=== PATIENT | female | born 1995 | race Hispanic/Latino ===

== ENCOUNTER 2019-05-21 15:49 | Emergency (ER) | payer SELFPAY ==
[~2019-05-21] VITALS: Ht 149.9 cm; Wt 56.7 kg
--- OUTSIDE RECORDS SUMMARY | 2019-05-21 15:51 | XMS REPORT ---
[facility] Address Unknown Phone Unavailable Care Team Providers Care Director Public Service Name Role Phone Unavailable Unavailable Payers Payer Name Policy Type Policy Number Effective Date Expiration Date Problems This patient has no known problems. Allergies, Adverse Reactions, Alerts Allergy Name Allergy Type Status Severity Reaction(s) Onset Date Inactive Date Treating Clinician Comments No Known Allergies DA Active U 2019-03-18 00:00:00 No Known Allergies DA Active U 2019-02-27 00:00:00 No Known Allergies DA Active U 2018-10-30 00:00:00 No Known Allergies DA Active U 2018-10-24 00:00:00 No Known Allergies DA Active U 2018-09-05 00:00:00 No Known Allergies DA Active U 2018-05-08 00:00:00 No Known Contrast Allergies DA Active U 2008-11-06 00:00:00 No Known Drug Allergies DA Active U 2008-11-06 00:00:00 No Known Food Allergies DA Active U 2008-11-06 00:00:00 No Known Other Allergies DA Active U 2008-11-06 00:00:00 Medications This patient has no known medications. Encounters Start Date/Time End Date/Time Encounter Type Admission Type Attending Clinicians Care Facility Care Department Encounter ID 2019-03-19 13:35:00 2019-03-19 13:35:00 Emergency E [id number] Results Test Description Test Time Test Comments Text Results Atomic Results Result Comments BASIC METABOLIC PANEL 2019-03-18 13:37:00 SODIUM (test code=NA) 137 mmol/L 136-145 POTASSIUM (test code=K) 3.8 mmol/L 3.5-5.1 CHLORIDE (test code=CL) 105.0 mmol/L 98-107 CARBON DIOXIDE (test code=CO2) 23.0 mmol/L 21-32 ANION GAP (test code=GAP) 12.8 10-20 GLUCOSE (test code=GLU) 109 mg/dL 74-106 BLOOD UREA NITROGEN (test code=BUN) 8 mg/dL 7-18 GLOMERULAR FILTRATION RATE (test code=GFR) > 60 mL/min >=60 Estimated GFR by using Modified MDRD formula.Chronic kidney disease is defined as either kidney damageor GFR <60 mL/min/1.73 m2 for >3 months. CREATININE (test code=CREAT) 0.60 mg/dL 0.55-1.02 Note change in reference range due to change in reagent. BUN/CREATININE RATIO (test code=BUN/CREA) 13.5 10-20 CALCIUM (test code=CA) 9.5 mg/dL 8.5-10.1 HEPATIC FUNCTION [id number] 13:37:00* Test Item Value Reference Range Comments TOTAL PROTEIN (test code=PROT) 8.2 gram/dL 6.4-8.2 ALBUMIN (test code=ALB) 3.7 g/dL 3.4-5.0 GLOBULIN (test code=GLOB) 4.5 gram/dL 2.7-4.2 ALBUMIN/GLOBULIN RATIO (test code=A/G) 0.8 0.75-1.50 BILIRUBIN TOTAL (test code=BILT) 0.30 mg/dL 0.0-1.0 BILIRUBIN DIRECT (test code=BILD) 0.08 mg/dL 0.0-0.20 SGOT/AST (test code=AST) 16 IUnit/L 15-37 SGPT/ALT (test code=ALT) 24 IUnit/L 12-78 ALKALINE PHOSPHATASE TOTAL (test code=ALKP) 115 IUnit/L 45-117 Note change in reference range due to change in reagent. HCG SERUM [id number] 13:37:00* Test Item Value Reference Range Comments HCG SERUM QUAL (test code=HCGQL) NEGATIVE NEGATIVE This HCGQL test is NOT applicable for MALE patients.Check with nurse about probable order error.If Tumor Marker Test needed, nurse should order test "HCGTU"(Test #550.16511) [id number] 13:37:00* Test Item Value Reference Range Comments TROPONIN-I (test code=TROPI) <0.015 ng/mL 0-0.045 BASIC METABOLIC [id number] 13:23:00* Test Item Value Reference Range Comments SODIUM (test code=NA) 137 mmol/L 136-145 POTASSIUM (test code=K) 3.8 mmol/L 3.5-5.1 CHLORIDE (test code=CL) 105.0 mmol/L 98-107 CARBON DIOXIDE (test code=CO2) mmol/L 21-32 ANION GAP (test code=GAP) 10-20 GLUCOSE (test code=GLU) mg/dL 74-106 BLOOD UREA NITROGEN (test code=BUN) mg/dL 7-18 GLOMERULAR FILTRATION RATE (test code=GFR) mL/min >=60 CREATININE (test code=CREAT) mg/dL 0.55-1.02 BUN/CREATININE RATIO (test code=BUN/CREA) 10-20 CALCIUM (test code=CA) mg/dL 8.5-10.1 HEPATIC FUNCTION [id number] 13:23:00* Test Item Value Reference Range Comments TOTAL PROTEIN (test code=PROT) gram/dL 6.4-8.2 ALBUMIN (test code=ALB) g/dL 3.4-5.0 GLOBULIN (test code=GLOB) gram/dL 2.7-4.2 ALBUMIN/GLOBULIN RATIO (test code=A/G) 0.75-1.50 BILIRUBIN TOTAL (test code=BILT) mg/dL 0.0-1.0 BILIRUBIN DIRECT (test code=BILD) mg/dL 0.0-0.20 SGOT/AST (test code=AST) IUnit/L 15-37 SGPT/ALT (test code=ALT) IUnit/L 12-78 ALKALINE PHOSPHATASE TOTAL (test code=ALKP) IUnit/L 45-117 HCG SERUM [id number] 13:23:00* Test Item Value Reference Range Comments HCG SERUM QUAL (test code=HCGQL) NEGATIVE NEGATIVE This HCGQL test is NOT applicable for MALE patients.Check with nurse about probable order error.If Tumor Marker Test needed, nurse should order test "HCGTU"(Test #550.24287) [id number] 13:23:00* Test Item Value Reference Range Comments TROPONIN-I (test code=TROPI) ng/mL 0-0.045 BASIC METABOLIC [id number] 13:14:00* Test Item Value Reference Range Comments SODIUM (test code=NA) 137 mmol/L 136-145 POTASSIUM (test code=K) 3.8 mmol/L 3.5-5.1 CHLORIDE (test code=CL) 105.0 mmol/L 98-107 CARBON DIOXIDE (test code=CO2) mmol/L 21-32 ANION GAP (test code=GAP) 10-20 GLUCOSE (test code=GLU) mg/dL 74-106 BLOOD UREA NITROGEN (test code=BUN) mg/dL 7-18 GLOMERULAR FILTRATION RATE (test code=GFR) mL/min >=60 CREATININE (test code=CREAT) mg/dL 0.55-1.02 BUN/CREATININE RATIO (test code=BUN/CREA) 10-20 CALCIUM (test code=CA) mg/dL 8.5-10.1 HEPATIC FUNCTION [id number] 13:14:00* Test Item Value Reference Range Comments TOTAL PROTEIN (test code=PROT) gram/dL 6.4-8.2 ALBUMIN (test code=ALB) g/dL 3.4-5.0 GLOBULIN (test code=GLOB) gram/dL 2.7-4.2 ALBUMIN/GLOBULIN RATIO (test code=A/G) 0.75-1.50 BILIRUBIN TOTAL (test code=BILT) mg/dL 0.0-1.0 BILIRUBIN DIRECT (test code=BILD) mg/dL 0.0-0.20 SGOT/AST (test code=AST) IUnit/L 15-37 SGPT/ALT (test code=ALT) IUnit/L 12-78 ALKALINE PHOSPHATASE TOTAL (test code=ALKP) IUnit/L 45-117 HCG SERUM [id number] 13:14:00* Test Item Value Reference Range Comments HCG SERUM QUAL (test code=HCGQL) NEGATIVE [id number] 13:14:00* Test Item Value Reference Range Comments TROPONIN-I (test code=TROPI) ng/mL 0-0.045 CBC W/O [id number] 13:11:00* Test Item Value Reference Range Comments WHITE BLOOD CELL (test code=WBC) 6.0 K/mm3 4.5-12.5 RED BLOOD CELL (test code=RBC) 4.43 mill/mm3 3.7-5.2 HEMOGLOBIN (test code=HGB) 12.5 gram/dL 11.5-15.5 HEMATOCRIT (test code=HCT) 38.0 % 36.0-46.0 MEAN CELL VOLUME (test code=MCV) 85.8 fL 80-98 MEAN CELL HGB (test code=MCH) 28.2 picogram 27.0-33.0 MEAN CELL HGB CONCETRATION (test code=MCHC) 32.9 gram/dL 33.0-36.0 RED CELL DISTRIBUTION WIDTH (test code=RDW) 13.2 % 11.6-16.2 PLATELET COUNT (test code=PLT) 195 K/mm3 150-450 MEAN PLATELET VOLUME (test code=MPV) 11.3 fL 6.7-11.0 BASIC METABOLIC [id number] 22:22:00* Test Item Value Reference Range Comments SODIUM (test code=NA) 137 mmol/L 136-145 POTASSIUM (test code=K) 3.8 mmol/L 3.5-5.1 CHLORIDE (test code=CL) 103.0 mmol/L 98-107 CARBON DIOXIDE (test code=CO2) 27.0 mmol/L 21-32 ANION GAP (test code=GAP) 10.8 10-20 GLUCOSE (test code=GLU) 100 mg/dL 74-106 BLOOD UREA NITROGEN (test code=BUN) 8 mg/dL 7-18 GLOMERULAR FILTRATION RATE (test code=GFR) > 60 mL/min >=60 Estimated GFR by using Modified MDRD formula.Chronic kidney disease is defined as either kidney damageor GFR <60 mL/min/1.73 m2 for >3 months. CREATININE (test code=CREAT) 0.60 mg/dL 0.55-1.02 Note change in reference range due to change in reagent. BUN/CREATININE RATIO (test code=BUN/CREA) 14.0 10-20 CALCIUM (test code=CA) 9.4 mg/dL 8.5-10.1 HCG SERUM [id number] 22:22:00* Test Item Value Reference Range Comments HCG SERUM QUAL (test code=HCGQL) NEGATIVE NEGATIVE This HCGQL test is NOT applicable for MALE patients.Check with nurse about probable order error.If Tumor Marker Test needed, nurse should order test "HCGTU"(Test #550.46526) BASIC METABOLIC [id number] 22:21:00* Test Item Value Reference Range Comments SODIUM (test code=NA) 137 mmol/L 136-145 POTASSIUM (test code=K) 3.8 mmol/L 3.5-5.1 CHLORIDE (test code=CL) 103.0 mmol/L 98-107 CARBON DIOXIDE (test code=CO2) 27.0 mmol/L 21-32 ANION GAP (test code=GAP) 10.8 10-20 GLUCOSE (test code=GLU) 100 mg/dL 74-106 BLOOD UREA NITROGEN (test code=BUN) 8 mg/dL 7-18 GLOMERULAR FILTRATION RATE (test code=GFR) > 60 mL/min >=60 Estimated GFR by using Modified MDRD formula.Chronic kidney disease is defined as either kidney damageor GFR <60 mL/min/1.73 m2 for >3 months. CREATININE (test code=CREAT) 0.60 mg/dL 0.55-1.02 Note change in reference range due to change in reagent. BUN/CREATININE RATIO (test code=BUN/CREA) 14.0 10-20 CALCIUM (test code=CA) 9.4 mg/dL 8.5-10.1 HCG SERUM [id number] 22:21:00* Test Item Value Reference Range Comments HCG SERUM QUAL (test code=HCGQL) NEGATIVE CBC W/AUTO [id number] 22:05:00* Test Item Value Reference Range Comments WHITE BLOOD CELL (test code=WBC) 8.6 K/mm3 4.5-12.5 RED BLOOD CELL (test code=RBC) 4.41 mill/mm3 3.7-5.2 HEMOGLOBIN (test code=HGB) 12.3 gram/dL 11.5-15.5 HEMATOCRIT (test code=HCT) 37.1 % 36.0-46.0 MEAN CELL VOLUME (test code=MCV) 84.1 fL 80-98 MEAN CELL HGB (test code=MCH) 27.9 picogram 27.0-33.0 MEAN CELL HGB CONCETRATION (test code=MCHC) 33.2 gram/dL 33.0-36.0 RED CELL DISTRIBUTION WIDTH (test code=RDW) 13.2 % 11.6-16.2 RED CELL DISTRIBUTION WIDTH SD (test code=RDW-SD) 40.8 fL 37.0-51.0 PLATELET COUNT (test code=PLT) 239 K/mm3 150-450 MEAN PLATELET VOLUME (test code=MPV) 11.4 fL 6.7-11.0 NEUTROPHIL % (test code=NT%) 74.9 % 39.0-69.0 IMMATURE GRANULOCYTE % (test code=IG%) 0.3 % 0.0-5.0 LYMPHOCYTE % (test code=LY%) 21.4 % 25.0-55.0 MONOCYTE % (test code=MO%) 3.1 % 0.0-10.0 EOSINOPHIL % (test code=EO%) 0.2 % 0.0-5.0 BASOPHIL % (test code=BA%) 0.1 % 0.0-1.0 NUCLEATED RBC % (test code=NRBC%) 0.0 % 0-0 NEUTROPHIL # (test code=NT#) 6.45 K/mm3 1.8-7.7 IMMATURE GRANULOCYTE # (test code=IG#) 0.03 x10 3/uL 0-0.03 LYMPHOCYTE # (test code=LY#) 1.85 K/mm3 1.0-5.0 MONOCYTE # (test code=MO#) 0.27 K/mm3 0-0.8 EOSINOPHIL # (test code=EO#) 0.02 K/mm3 0.0-0.5 BASOPHIL # (test code=BA#) 0.01 K/mm3 0.0-0.2 NUCLEATED RBC # (test code=NRBC#) 0.00 K/mm3 0.0-0.1 MANUAL DIFF REQUIRED (test code=MDIFF) NO CBC W/AUTO [id number] 22:04:00* Test Item Value Reference Range Comments WHITE BLOOD CELL (test code=WBC) K/mm3 4.5-12.5 RED BLOOD CELL (test code=RBC) mill/mm3 3.7-5.2 HEMOGLOBIN (test code=HGB) 12.3 gram/dL 11.5-15.5 HEMATOCRIT (test code=HCT) 37.1 % 36.0-46.0 MEAN CELL VOLUME (test code=MCV) fL 80-98 MEAN CELL HGB (test code=MCH) picogram 27.0-33.0 MEAN CELL HGB CONCETRATION (test code=MCHC) gram/dL 33.0-36.0 RED CELL DISTRIBUTION WIDTH (test code=RDW) % 11.6-16.2 RED CELL DISTRIBUTION WIDTH SD (test code=RDW-SD) fL 37.0-51.0 PLATELET COUNT (test code=PLT) K/mm3 150-450 MEAN PLATELET VOLUME (test code=MPV) fL 6.7-11.0 NEUTROPHIL % (test code=NT%) % 39.0-69.0 IMMATURE GRANULOCYTE % (test code=IG%) % 0.0-5.0 LYMPHOCYTE % (test code=LY%) % 25.0-55.0 MONOCYTE % (test code=MO%) % 0.0-10.0 EOSINOPHIL % (test code=EO%) % 0.0-5.0 BASOPHIL % (test code=BA%) % 0.0-1.0 NEUTROPHIL # (test code=NT#) K/mm3 1.8-7.7 LYMPHOCYTE # (test code=LY#) K/mm3 1.0-5.0 MONOCYTE # (test code=MO#) K/mm3 0-0.8 EOSINOPHIL # (test code=EO#) K/mm3 0.0-0.5 BASOPHIL # (test code=BA#) K/mm3 0.0-0.2 CBC W/AUTO [id number] 08:04:00* Test Item Value Reference Range Comments WHITE BLOOD CELL (test code=WBC) 10.6 K/mm3 4.5-12.5 RED BLOOD CELL (test code=RBC) 3.14 mill/mm3 3.7-5.2 HEMOGLOBIN (test code=HGB) 9.3 gram/dL 11.5-15.5 HEMATOCRIT (test code=HCT) 28.6 % 36.0-46.0 MEAN CELL VOLUME (test code=MCV) 91.1 fL 80-98 MEAN CELL HGB (test code=MCH) 29.6 picogram 27.0-33.0 MEAN CELL HGB CONCETRATION (test code=MCHC) 32.5 gram/dL 33.0-36.0 RED CELL DISTRIBUTION WIDTH (test code=RDW) 14.7 % 11.6-16.2 RED CELL DISTRIBUTION WIDTH SD (test code=RDW-SD) 48.7 fL 37.0-51.0 PLATELET COUNT (test code=PLT) 102 K/mm3 150-450 MEAN PLATELET VOLUME (test code=MPV) 13.6 fL 6.7-11.0 NEUTROPHIL % (test code=NT%) 73.9 % 39.0-69.0 IMMATURE GRANULOCYTE % (test code=IG%) 0.6 % 0.0-5.0 LYMPHOCYTE % (test code=LY%) 21.1 % 25.0-55.0 MONOCYTE % (test code=MO%) 4.1 % 0.0-10.0 EOSINOPHIL % (test code=EO%) 0.1 % 0.0-5.0 BASOPHIL % (test code=BA%) 0.2 % 0.0-1.0 NUCLEATED RBC % (test code=NRBC%) 0.0 % 0-0 NEUTROPHIL # (test code=NT#) 7.80 K/mm3 1.8-7.7 IMMATURE GRANULOCYTE # (test code=IG#) 0.06 x10 3/uL 0-0.03 LYMPHOCYTE # (test code=LY#) 2.23 K/mm3 1.0-5.0 MONOCYTE # (test code=MO#) 0.43 K/mm3 0-0.8 EOSINOPHIL # (test code=EO#) 0.01 K/mm3 0.0-0.5 BASOPHIL # (test code=BA#) 0.02 K/mm3 0.0-0.2 NUCLEATED RBC # (test code=NRBC#) 0.00 K/mm3 0.0-0.1 MANUAL DIFF REQUIRED (test code=MDIFF) NO COMMENTS TO INSPECTION CLERK: 1ST DAYHIV 1 2 COMBO AG/AB [id number] 05:09:00* Test Item Value Reference Range Comments HIV 1 2 COMBO AG/AB SCREEN (test code=[id number]) AB/AG NON REACTIVE NONREACTIVE NONREACTIVE HIV P24 ANTIGEN NONREACTIVE NONREACTIVE HIV 1&2 ANTIBODY NONREACTIVE THE HIV-1 P24 TEST HELPS DISTINGUISH ACUTE HIV- 1INFECTIONFROM ESTABLISHED HIV-1 INFECTION WHEN THE SPECIMEN ISPOSITIVE FOR HIV- 1 P24 ANTIGEN. HIV-1 P24 ANTIGEN IS HIGHEST IN THE FIRST FEW WEEKS AFTERINFECTION AG HEPAT B [id number] 05:01:00* Test Item Value Reference Range Comments AG HEPAT B SURF (test code=HBSAG) Nonreactive Index Nonreactive AB [id number] 05:01:00* Test Item Value Reference Range Comments AB TREPONEMA (test code=TREPAB) Nonreactive Index NonReactive URINALYSIS [id number] 04:43:00* Test Item Value Reference Range Comments UA COLOR (test code=COLU) YELLOW YELLOW UA APPEARANCE (test code=APPU) Cloudy CLEAR UA GLUCOSE DIPSTICK (test code=DGLUU) NEGATIVE mg/dL NEGATIVE UA BILIRUBIN DIPSTICK (test code=BILU) NEGATIVE mg/dL NEGATIVE UA KETONE DIPSTICK (test code=KETU) NEGATIVE mg/dL NEGATIVE UA SPECIFIC GRAVITY (test code=SGU) 1.007 1.001-1.035 UA BLOOD DIPSTICK (test code=BAY) 0.06 mg/dL (1+) mg/dL NEGATIVE UA PH DIPSTICK (test code=MARGO) 7.0 5.0-8.0 UA PROTEIN DIPSTICK (test code=PROU) 30 (1+) mg/dL NEGATIVE UA UROBILINIOGEN DIPSTICK (test code=URO) Normal mg/dL NEGATIVE UA NITRITE DIPSTICK (test code=DOMI) NEGATIVE NEGATIVE UA LEUKOCYTE ESTERASE W REFLEX (test code=LEUUR) 250 Jennifer/uL Jennifer/uL NEGATIVE UA WBC (test code=WBCU) 20-30 per HPF 0-5 UA RBC (test code=RBCU) 10-15 per HPF 0-5 UA EPITHELIAL CELLS (test code=EPIU) Few (2-5/hpf) per HPF Few UA BACTERIA (test code=BACU) FEW per HPF NONE UA MUCUS (test code=MUCU) FEW per LPF NONE-FEW URINALYSIS [id number] 04:42:00* Test Item Value Reference Range Comments UA COLOR (test code=COLU) YELLOW YELLOW UA APPEARANCE (test code=APPU) Cloudy CLEAR UA GLUCOSE DIPSTICK (test code=DGLUU) NEGATIVE mg/dL NEGATIVE UA BILIRUBIN DIPSTICK (test code=BILU) NEGATIVE mg/dL NEGATIVE UA KETONE DIPSTICK (test code=KETU) NEGATIVE mg/dL NEGATIVE UA SPECIFIC GRAVITY (test code=SGU) 1.007 1.001-1.035 UA BLOOD DIPSTICK (test code=BAY) 0.06 mg/dL (1+) mg/dL NEGATIVE UA PH DIPSTICK (test code=MARGO) 7.0 5.0-8.0 UA PROTEIN DIPSTICK (test code=PROU) 30 (1+) mg/dL NEGATIVE UA UROBILINIOGEN DIPSTICK (test code=URO) Normal mg/dL NEGATIVE UA NITRITE DIPSTICK (test code=DOMI) NEGATIVE NEGATIVE UA LEUKOCYTE ESTERASE W REFLEX (test code=LEUUR) 250 Jennifer/uL Jennifer/uL NEGATIVE UA WBC (test code=WBCU) per HPF 0-5 UA RBC (test code=RBCU) per HPF 0-5 UA EPITHELIAL CELLS (test code=EPIU) per HPF Few UA BACTERIA (test code=BACU) per HPF NONE URINALYSIS [id number] 04:42:00* Test Item Value Reference Range Comments UA COLOR (test code=COLU) YELLOW YELLOW UA APPEARANCE (test code=APPU) Cloudy CLEAR UA GLUCOSE DIPSTICK (test code=DGLUU) NEGATIVE mg/dL NEGATIVE UA BILIRUBIN DIPSTICK (test code=BILU) NEGATIVE mg/dL NEGATIVE UA KETONE DIPSTICK (test code=KETU) NEGATIVE mg/dL NEGATIVE UA SPECIFIC GRAVITY (test code=SGU) 1.007 1.001-1.035 UA BLOOD DIPSTICK (test code=BAY) 0.06 mg/dL (1+) mg/dL NEGATIVE UA PH DIPSTICK (test code=MARGO) 7.0 5.0-8.0 UA PROTEIN DIPSTICK (test code=PROU) 30 (1+) mg/dL NEGATIVE UA UROBILINIOGEN DIPSTICK (test code=URO) Normal mg/dL NEGATIVE UA NITRITE DIPSTICK (test code=DOMI) NEGATIVE NEGATIVE UA LEUKOCYTE ESTERASE W REFLEX (test code=LEUUR) 250 Jennifer/uL Jennifer/uL NEGATIVE UA WBC (test code=WBCU) per HPF 0-5 UA RBC (test code=RBCU) per HPF 0-5 UA EPITHELIAL CELLS (test code=EPIU) per HPF Few UA BACTERIA (test code=BACU) per HPF NONE CBC W/AUTO [id number] 04:27:00* Test Item Value Reference Range Comments WHITE BLOOD CELL (test code=WBC) 7.5 K/mm3 4.5-12.5 RED BLOOD CELL (test code=RBC) 3.72 mill/mm3 3.7-5.2 HEMOGLOBIN (test code=HGB) 11.1 gram/dL 11.5-15.5 HEMATOCRIT (test code=HCT) 33.5 % 36.0-46.0 MEAN CELL VOLUME (test code=MCV) 90.1 fL 80-98 MEAN CELL HGB (test code=MCH) 29.8 picogram 27.0-33.0 MEAN CELL HGB CONCETRATION (test code=MCHC) 33.1 gram/dL 33.0-36.0 RED CELL DISTRIBUTION WIDTH (test code=RDW) 14.6 % 11.6-16.2 RED CELL DISTRIBUTION WIDTH SD (test code=RDW-SD) 47.6 fL 37.0-51.0 PLATELET COUNT (test code=PLT) 122 K/mm3 150-450 MEAN PLATELET VOLUME (test code=MPV) 13.4 fL 6.7-11.0 NEUTROPHIL % (test code=NT%) 61.8 % 39.0-69.0 IMMATURE GRANULOCYTE % (test code=IG%) 0.5 % 0.0-5.0 LYMPHOCYTE % (test code=LY%) 33.0 % 25.0-55.0 MONOCYTE % (test code=MO%) 4.5 % 0.0-10.0 EOSINOPHIL % (test code=EO%) 0.1 % 0.0-5.0 BASOPHIL % (test code=BA%) 0.1 % 0.0-1.0 NUCLEATED RBC % (test code=NRBC%) 0.0 % 0-0 NEUTROPHIL # (test code=NT#) 4.63 K/mm3 1.8-7.7 IMMATURE GRANULOCYTE # (test code=IG#) 0.04 x10 3/uL 0-0.03 LYMPHOCYTE # (test code=LY#) 2.48 K/mm3 1.0-5.0 MONOCYTE # (test code=MO#) 0.34 K/mm3 0-0.8 EOSINOPHIL # (test code=EO#) 0.01 K/mm3 0.0-0.5 BASOPHIL # (test code=BA#) 0.01 K/mm3 0.0-0.2 NUCLEATED RBC # (test code=NRBC#) 0.00 K/mm3 0.0-0.1 ROM [id number] 18:10:00* Test Item Value Reference Range Comments ROM PLUS (test code=AMNI) NEGATIVE NEGATIVE COMPREHENSIVE METABOLIC [id number] 07:59:00* Test Item Value Reference Range Comments SODIUM (test code=NA) 142 mmol/L 136-145 POTASSIUM (test code=K) 3.9 mmol/L 3.5-5.1 CHLORIDE (test code=CL) 110.0 mmol/L 98-107 CARBON DIOXIDE (test code=CO2) 25.0 mmol/L 21-32 ANION GAP (test code=GAP) 10.9 10-20 GLUCOSE (test code=GLU) 112 mg/dL 74-106 BLOOD UREA NITROGEN (test code=BUN) 4 mg/dL 7-18 GLOMERULAR FILTRATION RATE (test code=GFR) > 60 mL/min >=60 Estimated GFR by using Modified MDRD formula.Chronic kidney disease is defined as either kidney damageor GFR <60 mL/min/1.73 m2 for >3 months. CREATININE (test code=CREAT) 0.30 mg/dL 0.55-1.02 Note change in reference range due to change in reagent. BUN/CREATININE RATIO (test code=BUN/CREA) 12.4 10-20 TOTAL PROTEIN (test code=PROT) 5.6 gram/dL 6.4-8.2 ALBUMIN (test code=ALB) 2.4 g/dL 3.4-5.0 GLOBULIN (test code=GLOB) 3.2 gram/dL 2.7-4.2 ALBUMIN/GLOBULIN RATIO (test code=A/G) 0.8 0.75-1.50 CALCIUM (test code=CA) 8.3 mg/dL 8.5-10.1 BILIRUBIN TOTAL (test code=BILT) 0.20 mg/dL 0.0-1.0 SGOT/AST (test code=AST) 9 IUnit/L 15-37 SGPT/ALT (test code=ALT) 11 IUnit/L 12-78 ALKALINE PHOSPHATASE TOTAL (test code=ALKP) 94 IUnit/L 45-117 Note change in reference range due to change in reagent. COMPREHENSIVE METABOLIC [id number] 07:57:00* Test Item Value Reference Range Comments SODIUM (test code=NA) 142 mmol/L 136-145 POTASSIUM (test code=K) 3.9 mmol/L 3.5-5.1 CHLORIDE (test code=CL) 110.0 mmol/L 98-107 CARBON DIOXIDE (test code=CO2) mmol/L 21-32 ANION GAP (test code=GAP) 10-20 GLUCOSE (test code=GLU) mg/dL 74-106 BLOOD UREA NITROGEN (test code=BUN) mg/dL 7-18 GLOMERULAR FILTRATION RATE (test code=GFR) mL/min >=60 CREATININE (test code=CREAT) mg/dL 0.55-1.02 BUN/CREATININE RATIO (test code=BUN/CREA) 10-20 TOTAL PROTEIN (test code=PROT) gram/dL 6.4-8.2 ALBUMIN (test code=ALB) g/dL 3.4-5.0 GLOBULIN (test code=GLOB) gram/dL 2.7-4.2 ALBUMIN/GLOBULIN RATIO (test code=A/G) 0.75-1.50 CALCIUM (test code=CA) mg/dL 8.5-10.1 BILIRUBIN TOTAL (test code=BILT) mg/dL 0.0-1.0 SGOT/AST (test code=AST) IUnit/L 15-37 SGPT/ALT (test code=ALT) IUnit/L 12-78 ALKALINE PHOSPHATASE TOTAL (test code=ALKP) IUnit/L 45-117 URINALYSIS [id number] 02:18:00* Test Item Value Reference Range Comments UA COLOR (test code=COLU) YELLOW YELLOW UA APPEARANCE (test code=APPU) Cloudy CLEAR UA GLUCOSE DIPSTICK (test code=DGLUU) NEGATIVE mg/dL NEGATIVE UA BILIRUBIN DIPSTICK (test code=BILU) NEGATIVE mg/dL NEGATIVE UA KETONE DIPSTICK (test code=KETU) Negative mg/dL NEGATIVE UA SPECIFIC GRAVITY (test code=SGU) 1.006 1.001-1.035 UA BLOOD DIPSTICK (test code=BAY) 3+ (Large) NEGATIVE UA PH DIPSTICK (test code=MARGO) 8.0 5.0-8.0 UA PROTEIN DIPSTICK (test code=PROU) 30 (1+) mg/dL NEGATIVE UA UROBILINIOGEN DIPSTICK (test code=URO) NEGATIVE mg/dL NEGATIVE UA NITRITE DIPSTICK (test code=DOMI) NEGATIVE NEGATIVE UA LEUKOCYTE ESTERASE W REFLEX (test code=LEUUR) 3+ NEGATIVE UA WBC (test code=WBCU) >50 per HPF 0-5 IN SOME URINARY TRACT INFECTIONS THERE MAY NOT BE ENOUGHWBCs IN THE URINE TO TRIGGER AN AUTOMATIC (REFLEX) URINECULTURE. A SEPERATE ORDER FOR URINE CULTURE IS RECOMMENDEDIF THERE IS STRONG SUPPORT FOR A URINARY TRACT INFECTIONCLINICALLY. UA RBC (test code=RBCU) >20 per HPF 0-5 UA WBC CLUMPS (test code=WBCUCL) >10 /HPF NONE UA EPITHELIAL CELLS (test code=EPIU) Few (2-5/hpf) per HPF Few UA BACTERIA (test code=BACU) FEW per HPF NONE UA MUCUS (test code=MUCU) FEW #/LPF FEW URINALYSIS [id number] 02:13:00* Test Item Value Reference Range Comments UA COLOR (test code=COLU) YELLOW YELLOW UA APPEARANCE (test code=APPU) Cloudy CLEAR UA GLUCOSE DIPSTICK (test code=DGLUU) NEGATIVE mg/dL NEGATIVE UA BILIRUBIN DIPSTICK (test code=BILU) NEGATIVE mg/dL NEGATIVE UA KETONE DIPSTICK (test code=KETU) Negative mg/dL NEGATIVE UA SPECIFIC GRAVITY (test code=SGU) 1.006 1.001-1.035 UA BLOOD DIPSTICK (test code=BAY) 3+ (Large) NEGATIVE UA PH DIPSTICK (test code=MARGO) 8.0 5.0-8.0 UA PROTEIN DIPSTICK (test code=PROU) 30 (1+) mg/dL NEGATIVE UA UROBILINIOGEN DIPSTICK (test code=URO) NEGATIVE mg/dL NEGATIVE UA NITRITE DIPSTICK (test code=DOMI) NEGATIVE NEGATIVE UA LEUKOCYTE ESTERASE W REFLEX (test code=LEUUR) 3+ NEGATIVE UA WBC (test code=WBCU) per HPF 0-5 URINALYSIS [id number] 02:13:00* Test Item Value Reference Range Comments UA COLOR (test code=COLU) YELLOW YELLOW UA APPEARANCE (test code=APPU) Cloudy CLEAR UA GLUCOSE DIPSTICK (test code=DGLUU) NEGATIVE mg/dL NEGATIVE UA BILIRUBIN DIPSTICK (test code=BILU) NEGATIVE mg/dL NEGATIVE UA KETONE DIPSTICK (test code=KETU) Negative mg/dL NEGATIVE UA SPECIFIC GRAVITY (test code=SGU) 1.006 1.001-1.035 UA BLOOD DIPSTICK (test code=BAY) 3+ (Large) NEGATIVE UA PH DIPSTICK (test code=MARGO) 8.0 5.0-8.0 UA PROTEIN DIPSTICK (test code=PROU) 30 (1+) mg/dL NEGATIVE UA UROBILINIOGEN DIPSTICK (test code=URO) NEGATIVE mg/dL NEGATIVE UA NITRITE DIPSTICK (test code=DOMI) NEGATIVE NEGATIVE UA LEUKOCYTE ESTERASE W REFLEX (test code=LEUUR) 3+ NEGATIVE UA WBC (test code=WBCU) >50 per HPF 0-5 IN SOME URINARY TRACT INFECTIONS THERE MAY NOT BE ENOUGHWBCs IN THE URINE TO TRIGGER AN AUTOMATIC (REFLEX) URINECULTURE. A SEPERATE ORDER FOR URINE CULTURE IS RECOMMENDEDIF THERE IS STRONG SUPPORT FOR A URINARY TRACT INFECTIONCLINICALLY. UA RBC (test code=RBCU) >20 per HPF 0-5 UA WBC CLUMPS (test code=WBCUCL) >10 /HPF NONE UA EPITHELIAL CELLS (test code=EPIU) Few (2-5/hpf) per HPF Few UA BACTERIA (test code=BACU) FEW per HPF NONE URINALYSIS [id number] 02:13:00* Test Item Value Reference Range Comments UA COLOR (test code=COLU) YELLOW YELLOW UA APPEARANCE (test code=APPU) Cloudy CLEAR UA GLUCOSE DIPSTICK (test code=DGLUU) NEGATIVE mg/dL NEGATIVE UA BILIRUBIN DIPSTICK (test code=BILU) NEGATIVE mg/dL NEGATIVE UA KETONE DIPSTICK (test code=KETU) Negative mg/dL NEGATIVE UA SPECIFIC GRAVITY (test code=SGU) 1.006 1.001-1.035 UA BLOOD DIPSTICK (test code=BAY) 3+ (Large) NEGATIVE UA PH DIPSTICK (test code=MARGO) 8.0 5.0-8.0 UA PROTEIN DIPSTICK (test code=PROU) 30 (1+) mg/dL NEGATIVE UA UROBILINIOGEN DIPSTICK (test code=URO) NEGATIVE mg/dL NEGATIVE UA NITRITE DIPSTICK (test code=DOMI) NEGATIVE NEGATIVE UA LEUKOCYTE ESTERASE W REFLEX (test code=LEUUR) 3+ NEGATIVE UA WBC (test code=WBCU) per HPF 0-5 CBC W/AUTO [id number] 02:11:00* Test Item Value Reference Range Comments WHITE BLOOD CELL (test code=WBC) 11.0 K/mm3 4.5-12.5 RED BLOOD CELL (test code=RBC) 3.66 mill/mm3 3.7-5.2 HEMOGLOBIN (test code=HGB) 10.7 gram/dL 11.5-15.5 HEMATOCRIT (test code=HCT) 32.4 % 36.0-46.0 MEAN CELL VOLUME (test code=MCV) 88.5 fL 80-98 MEAN CELL HGB (test code=MCH) 29.2 picogram 27.0-33.0 MEAN CELL HGB CONCETRATION (test code=MCHC) 33.0 gram/dL 33.0-36.0 RED CELL DISTRIBUTION WIDTH (test code=RDW) 14.6 % 11.6-16.2 RED CELL DISTRIBUTION WIDTH SD (test code=RDW-SD) 45.2 fL 37.0-51.0 PLATELET COUNT (test code=PLT) 157 K/mm3 150-450 MEAN PLATELET VOLUME (test code=MPV) 12.1 fL 6.7-11.0 NEUTROPHIL % (test code=NT%) 77.6 % 39.0-69.0 IMMATURE GRANULOCYTE % (test code=IG%) 1.5 % 0.0-5.0 LYMPHOCYTE % (test code=LY%) 15.1 % 25.0-55.0 MONOCYTE % (test code=MO%) 5.4 % 0.0-10.0 EOSINOPHIL % (test code=EO%) 0.3 % 0.0-5.0 BASOPHIL % (test code=BA%) 0.1 % 0.0-1.0 NUCLEATED RBC % (test code=NRBC%) 0.0 % 0-0 NEUTROPHIL # (test code=NT#) 8.54 K/mm3 1.8-7.7 IMMATURE GRANULOCYTE # (test code=IG#) 0.17 x10 3/uL 0-0.03 LYMPHOCYTE # (test code=LY#) 1.66 K/mm3 1.0-5.0 MONOCYTE # (test code=MO#) 0.59 K/mm3 0-0.8 EOSINOPHIL # (test code=EO#) 0.03 K/mm3 0.0-0.5 BASOPHIL # (test code=BA#) 0.01 K/mm3 0.0-0.2 NUCLEATED RBC # (test code=NRBC#) 0.00 K/mm3 0.0-0.1 MANUAL DIFF REQUIRED (test code=MDIFF) NO
--- NOTE | 2019-05-21 16:17 | NUR ---
PATIENT TO ROOM 10
[2019-05-21 16:55] LABS: BILIRUBIN,URINE NEGATIVE (NEGATIVE); CLARITY,URINE CLEAR (CLEAR); COLOR,URINE YELLOW (YELLOW); KETONES,URINE NEGATIVE (NEGATIVE); LEUKOCYTE ESTERASE ,URINE NEGATIVE (NEGATIVE); NITRITE,URINE NEGATIVE (NEGATIVE); PROTEIN,URINE DIPSTICK NEGATIVE (NEGATIVE); URINE UROBILINOGEN 0.2 mg/dL (0.2 - 1)
[2019-05-21 17:00] LABS: PREGNANCY TEST, URINE NEGATIVE (NEGATIVE)
[2019-05-21 17:19] LABS: BACTERIA,URINE MODERATE /HPF; EPITHELIAL CELLS,URINE MODERATE /LPF; RBC,URINE 0-5 /HPF (0-5); WBC,URINE (MAN) 0-5 /HPF (0-5)
[2019-05-21] MEDS ORDERED: DIAZEPAM 5 MG TAB PO ONE (17:30)
== END 2019-05-21 18:10 | disposition home or self-care (01) ==
LOC: ER 15:49
DX: F41.1 Generalized anxiety disorder (principal); F32.0 Major depressive disorder, single episode, mild
CPT/HCPCS: 81001; 81025; 99283

== ENCOUNTER 2020-02-15 12:51 | Emergency (ER) | payer SELFPAY ==
[~2020-02-15] VITALS: Ht 149.9 cm; Wt 56.7 kg
--- NOTE | 2020-02-15 13:38 | Emergency Department Note ---
History of Present Illnes History of Present Illness Chief Complaint: COVID PUI History of Present Illness This is a 24 year old female c/o constant frontal lobe beard denies photosensitivity denies blurred vision denies htn denies hx of migraines also n/v that started this morning when she tried to eat denies chance of not sexually active lmp feb 04, 2020 states she feels she can't eat c/o fatigue denies fever/muscle aches/chills c/o cp hx of anxiety takes anxiety medication. Historian: Patient Arrival Mode: Car Social Media Marketing Manager Required: No Onset (how long ago): hour(s) Radiation: Reports non-radiation Severity: moderate Onset quality: gradual Timing of current episode: constant Chronicity: new Context: Denies recent illness Relieving factors: none Exacerbating factors: none Associated symptoms: Reports denies other symptoms Treatments prior to arrival: none Past Medical/Family History Physician Review I have reviewed the patient's past medical and family history. Any updates have been documented here. Past Medical History Recent Fever: No Clinical Suspicion of Infectio: Yes New/Unexplained Change in Ment: No Past Medical History: Anxiety Past Surgical History: None Social History Smoking Cessation: Never Smoker Counseling Performed: No Alcohol Use: None Any Illegal Drug Use: No TB Exposure/Symptoms: No Physically hurt or threatened: No Family History Family history of heart diseas: No Other Last Tetanus: U Any Pre-Existing Lines (PICC,: No Review of Systems Review of Systems Constitutional: Reports as per HPI EENTM: Reports no symptoms Cardiovascular: Reports no symptoms Respiratory: Reports as per HPI Gastrointestinal: Reports as per HPI Genitourinary: Reports no symptoms Musculoskeletal: Reports no symptoms Integumentary: Reports no symptoms Neurological: Reports as per HPI Psychological: Reports no symptoms Endocrine: Reports no symptoms Hematological/Lymphatic: Reports no symptoms Physical Exam Related Data Allergies: Coded Allergies: No Known Allergies (Unverified , 05/21/19) Triage Vital Signs Vital Signs Date Time Temp Pulse Resp B/P (MAP) Pulse Ox O2 Delivery O2 Flow Rate FiO2 02/15/20 13:13 98.9 103 18 129/94 100 Room Air Vital signs reviewed: Yes Physical Exam CONSTITUTIONAL Constitutional: Present well-developed, Present well-nourished HENT HENT: Present normocephalic, Present atraumatic, Present oropharynx clear/moist, Present nose normal HENT L/R: Present left ext ear normal, Present right ext ear normal EYES Eyes: Reports PERRL, Reports conjunctivae normal NECK Neck: Present ROM normal PULMONARY Pulmonary: Present effort normal, Present breath sounds normal CARDIOVASCULAR Cardiovascular: Present regular rhythm, Present heart sounds normal, Present capillary refill normal, Present normal rate GASTROINTESTINAL Abdominal: Present soft, Present nontender, Present bowel sounds normal GENITOURINARY Genitourinary: Present exam deferred SKIN Skin: Present warm, Present dry MUSCULOSKELETAL Musculoskeletal: Present ROM normal NEUROLOGICAL Neurological: Present alert, Present oriented x 3, Present no gross motor or sensory deficits PSYCHOLOGICAL Psychological: Present mood/affect normal, Present judgement normal Procedures 12 Lead ECG Interpretation ECG Interpretation : ECG: ECG 1 Social Media Marketing Manager: Interpreted by ED physician Date: Feb 15, 2020 Time: 13:20 Rhythm: sinus rhythm Rate: normal (85) QRS axis: normal ST segments normal: Yes T waves normal: Yes Clinical Impression: normal ECG Assessment & Plan Medical Decision Making MDM LIKELY COVID, O2 SAT 100% ON RA Reassessment Reassessment DC HOME, YOLA VITALE ODT, OTC TYLENOL/IBUPROFEN, SELF-QUARANTINE, PRONING, F/U PCP Assessment & Plan Final Impression: (1) Viral syndrome Depart Disposition: HOME, SELF-CARE Last Vital Signs Date Time Temp Pulse Resp B/P (MAP) Pulse Ox O2 Delivery O2 Flow Rate FiO2 02/15/20 13:13 98.9 103 18 129/94 100 Room Air NORA MERA MD Feb 15, 2020 13:38
--- OUTSIDE RECORDS SUMMARY | 2020-02-15 14:45 | XMS REPORT | Continuity of Care Document ---
Author Author [facility] t Organization [facility] Address [address] [place] [address] Phone Unavailable Care Team Providers Care Print Machine Operator Name Role Phone NO, PCP PCP Unavailable Marysol Castillo Attphys Unavailable Karon Polk Attphys Stephanie Santana Attphys Cony Foote Attphys Unavailable Karon Polk Unavailable Payers Payer Name Policy Type Policy Number Effective Date Expiration Date S ource Sliding Fee - Cat 1 CI [id number] 2019 00:00:00 2020-05 00:00:00 [facility] 1 11 [id number] 2019 00:00:00 2020-05 00:00:00 [facility] Problems Condition Name Condition Details Condition Category Status Onset Date Resolution Date Last Treatment Date Treating Clinician Comments Source Vision changes Condition Active 2019-12-26 00:00:00 202 10:12:00 Karon Polk [facility] Hyperlipidemia Condition Active 2019-12-26 00:00:00 202 10:12:00 [facility]k [facility] CONTRACEPTIVE MANAGEMENT Condition Active 2019-08-04 00:0 0:00 2019-08-05 17:20:54 [facility] Condition Active 2019-08-04 00:00:00 2019-08-05 17:20:54 Karon Polk [facility] Screening for cervical cancer Condition Active 2019-08-04 00:00:00 2019-08-05 17:20:54 [facility]ang [facility] WELL EXAM, WOMAN Condition Active 2019-08-04 00:00:00 2 17:20:54 JamAba [facility] Adjustment disorder with mixed anxiety and depressed mood Condition Active 2019-08-04 00:00:00 2019-08-05 17:20:54 Jam, Karon [facility] Obesity Condition Active 2019-08-04 00:00:00 2019-08-05 17:20:54 [facility] Viral infection Problem Active [facility] History of Past Illness Condition Name Condition Details Condition Category Status Onset Date Resolution Date Last Treatment Date Treating Clinician Comments Source Upper respiratory infection, acute Condition Inactive 2 00:00:00 2019-12-26 00:00:00 2019-12-26 10:12:00 JamKaron wang [employer] [facility] Allergies, Adverse Reactions, Alerts Allergy Name Allergy Type Status Severity Reaction(s) Onset Date Inacti ve Date Treating Clinician Comments Source No Known Allergies DA Active U 2019-03-18 00:00:00 [facility] No Known Allergies DA Active U 2019-02-27 00:00:00 [facility] No Known Allergies DA Active U 2018-10-30 00:00:00 [facility] No Known Allergies DA Active U 2018-10-24 00:00:00 [facility] No Known Allergies DA Active U 2018-09-05 00:00:00 [facility] No Known Allergies DA Active U 2018-05-08 00:00:00 [facility] No Known Contrast Allergies DA Active U 2008-11-06 00:00: 00 [facility] No Known Drug Allergies DA Active U 2008-11-06 00:00:00 [facility] No Known Food Allergies DA Active U 2008-11-06 00:00:00 [facility] No Known Other Allergies DA Active U 2008-11-06 00:00:00 [facility] Social History Social Habit Start Date Stop Date Quantity Comments Source drug use, illicit 2019-12-26 09:17:53 2019-12-26 09:17:53 [facility] alcohol use 2019-12-26 09:17:53 2019-12-26 09:17:53 [facility] sexual orientation 2019-12-26 09:17:53 2019-12-26 09:17:53 Heterosexu al [facility] is there any chance that you could be ? 2019-12-26 0 9:17:53 2019-12-26 09:17:53 No [facility] assessment of health literacy (NCQA [facility] 2014 Standard s, 3C10) 2019-12-26 09:17:53 2019-12-26 09:17:53 Adequate [facility] passive cigarette smoke exposure 2019-12-26 09:17:53 2019-12-26 09:17 :53 No [facility] if the patient is using/has used a vapin g item, Current, Former, Never Used, Not asked 2019-12-26 09:17:53 2019-12-26 09:17:53 No L egacy [facility] social history - sexual practice 2019-08-04 09:20:10 2019-08-04 09:20:10 sexualy active [facility] family support 2019-08-04 09:20:10 2019-08-04 09:20:10 [facility] social history reviewed E&M 2019-08-04 09:20:10 2019-08-04 09:20 :10 reviewed [facility] patient considered to be homeless 2019-08-04 09:20:10 2019-08-04 09:2 0:10 No [facility] Sex Assigned At 1995 00:00:00 1995 00:00:00 Female [facility] Smoking Status Start Date Stop Date Source Never smoked tobacco (finding) L [facility] Medications Ordered Medication Name Filled Medication Name Start Date Stop Da te Current Medication? Ordering Clinician Indication Dosage Frequency Signature (SIG) Comments Components Source SPRINTEC 28 (NORGESTIMATE-ETH ESTRADIOL) 0.25-35 MG-MCG TABS 2019-12-26 00:00:00 Yes Karon Jam 1{Tablet} 1xD 1 by mouth every d ay [facility] BROMFED DM (DHAAFTGHQ-ASLQHZNA-QE) 30-2-10 MG/5ML SYRP 2019-09-01 00:00:00 2019-12-26 00:00:00 No Karon Jam 1 0 mL every four hours as needed for cough/congestion [facility] LEXAPRO (ESCITALOPRAM OXALATE) 10 MG TABS 2019-08-04 00:00 :00 Yes Karon Jam 1{Tablet} 1xD 1 By Mouth Every Day [facility] Vital Signs Vital Name Observation Time Observation Value Comments Source Weight 2020-02-15 13:13:00 125 [lb_av] [facility] BMI (Body Mass Index) 2020-02-15 13:13:00 25.2 kg/m2 [facility] oxygen saturation, oximetry 2019-12-26 09:17:53 99 % [facility] blood pressure, diastolic 2019-12-26 09:17:53 72 mm[Hg] [facility] blood pressure, systolic 2019-12-26 09:17:53 107 mm[Hg] [facility] respiratory rate E&M 2019-12-26 09:17:53 14 /min [facility] pulse rate 2019-12-26 09:17:53 97 /min [facility] temperature site 2019-12-26 09:17:53 oral [facility] temperature E&M 2019-12-26 09:17:53 97.9 [degF] [facility] weight E&M 2019-12-26 09:17:53 161.60 [lb_av] [facility] weight in kilograms E&M 2019-12-26 09:17:53 73.45 kg [facility] height in centimeters E&M 2019-12-26 09:17:53 149.86 cm [facility] oxygen saturation, oximetry 2019-09-01 09:45:48 98 % [facility] blood pressure, diastolic 2019-09-01 09:45:48 79 mm[Hg] [facility] blood pressure, systolic 2019-09-01 09:45:48 116 mm[Hg] [facility] respiratory rate E&M 2019-09-01 09:45:48 18 /min [facility] pulse rate 2019-09-01 09:45:48 104 /min [facility] temperature E&M 2019-09-01 09:45:48 97.9 [degF] [facility] weight E&M 2019-09-01 09:45:48 155.40 [lb_av] [facility] weight in kilograms E&M 2019-09-01 09:45:48 70.64 kg [facility] temperature site 2019-09-01 09:45:48 oral Lega [facility] height in centimeters E&M 2019-09-01 09:45:48 149.86 cm [facility] oxygen saturation, oximetry 2019-08-04 09:20:10 98 % [facility] blood pressure, diastolic 2019-08-04 09:20:10 80 mm[Hg] [facility] blood pressure, systolic 2019-08-04 09:20:10 113 mm[Hg] [facility] respiratory rate E&M 2019-08-04 09:20:10 18 /min [facility] pulse rate 2019-08-04 09:20:10 95 /min [facility] temperature site 2019-08-04 09:20:10 oral Lega cy [facility] temperature E&M 2019-08-04 09:20:10 97.6 [degF] [facility] weight E&M 2019-08-04 09:20:10 159.60 [lb_av] [facility] weight in kilograms E&M 2019-08-04 09:20:10 72.55 kg [facility] height in centimeters E&M 2019-08-04 09:20:10 149.86 cm [facility] Procedures Procedure Date / Time Performed Performing Clinician Sourc e IM or SQ Injection 2019-08-04 17:00:53 [facility]k [facility] Planned Activity Planned Date Details Comments Source Instructions COVID-19: 09/19/2019 [facility] Encounters Start Date/Time End Date/Time Encounter Type Admission Type [facility] Department Encounter ID Source 2020-02-15 13:30:00 2020-02-15 13:30:00 Departed Emergency Room [facility] [id number] [facility] 2019-12-26 00:00:00 2019-12-26 00:00:00 Office Visit José Miguel Castillo [place] Encounter/[id number] [facility] 2019-12-26 00:00:00 2019-12-26 00:00:00 Office Visit Karon Abraham Adriana [place] Encounter/[id number] [facility] 2019-10-11 00:00:00 2019-10-11 00:00:00 Office Visit Pablo Polk [place] Encounter/[id number] [facility] 2019-10-11 00:00:00 2019-10-11 00:00:00 Office Visit Pablo Polk [place] Encounter/[id number] [facility] 2019-10-11 00:00:00 2019-10-11 00:00:00 Office Visit Pablo Polk [place] Encounter/[id number] [facility] 2019-10-11 00:00:00 2019-10-11 00:00:00 Office Visit Pablo Polk [place] Encounter/[id number] [facility] 2019-10-11 00:00:00 2019-10-11 00:00:00 Office Visit Pablo Polk [place] Encounter/[id number] [facility] 2019-09-01 00:00:00 2019-09-01 00:00:00 Office Visit Pablo Polk [place] Encounter/[id number] [facility] 2019-09-01 00:00:00 2019-09-01 00:00:00 Office Visit Karon Abraham Adriana [place] [id number] [facility] 2019-08-28 02:04:00 2019-08-28 02:04:00 Emergency E [facility] 2019-08-11 00:00:00 2019-08-11 00:00:00 Office Visit José Miguel Castillo [place] Encounter/[id number] [facility] 2019-08-10 00:00:00 2019-08-10 00:00:00 Office Visit José Miguel Castillo [facility] LC Encounter/[id number] [facility] 2019-08-10 00:00:00 2019-08-10 00:00:00 Office Visit Pablo Polk [place] Encounter/[id number] [facility] 2019-08-05 00:00:00 2019-08-05 00:00:00 Office Visit Catracho Santana [facility] LC Encounter/[id number] [facility] 2019-08-04 00:00:00 2019-08-04 00:00:00 Office Visit Pablo Polk [place] Encounter/[id number] [facility] 2019-08-04 00:00:00 2019-08-04 00:00:00 Office Visit Karon Abraham Adriana [place] [facility][id number] [facility] 2019-08-04 00:00:00 2019-08-04 00:00:00 Office Visit Pablo Polk [place] [id number] [facility] 2019-08-04 00:00:00 2019-08-04 00:00:00 Office Visit Pablo Polk [place] [facility][id number] [facility] 2019-08-04 00:00:00 2019-08-04 00:00:00 Office Visit José Miguel Castillo [facility] LC Encounter/[id number] [facility] 2019-08-04 00:00:2019-08-04 00:00:00 Office Visit Karon Abraham Adriana [place] Encounter/[id number] [facility] 2019-06-15 00:00:00 2019-06-15 00:00:00 Office Visit Catracho Santana [place] Encounter/[id number] [facility] 2019-05-23 00:00:00 2019-05-23 00:00:00 Office Visit Nancy Foote [place] Encounter/[id number] [facility] 2019-05-21 14:49:00 2019-05-21 17:10:00 Departed Emergency Room [facility] [id number] [facility] 2019-03-19 13:35:00 2019-03-19 13:35:00 Emergency E SE [facility] Results Test Description Test Time Test Comments Results Result Comments Source beta HCG, urine, semiquantitative 2019-12-26 10:33:01 Test Item beta HCG, urine, semiquantitative (test code = 2106-3) negative [facility]cNeisseria gonorrhoeae DNA [id number] 15:15:00* Test Item Value Reference Range Interpretation Comments Neisseria gonorrhoeae DNA probe (test code = 63170-0) Negative Negative [facility]chlamydia DNA [id number] 15:15:00* Test Item Value Reference Range Interpretation Comments chlamydia DNA probe (test code = 47603-5) Negative Negative [facility] Papillomavirus test [id number] 15:14:00* Test Item Value Reference Range Interpretation Comments Human Papillomavirus test result (test code = 21190-9) HPVNotTested [facility]rmcthyroid stimulating hormone, [id number] 10:20:00* Test Item Value Reference Range Interpretation Comments thyroid stimulating hormone, serum (test code = 3016-3) 1.21 0 u[iU]/mL 0.450-4.500 [facility]rm[facility]oglobin A1C, blood, as % of total zrmvyooibt6420-26-03 10:20:00* Test Item Value Reference Range Interpretation Comments hemoglobin A1C, blood, as % of total hemoglobin (test code = 4548-4) 5.6 % 4.8-5.6 [facility]cLDL cholesterol, [id number] 10:20:00* Test Item Value Reference Range Interpretation Comments LDL cholesterol, serum (test code = 2089-1) 138 mg/dL 0-99 H [facility]cvery low density ouphooyqzzyy1168-27-14 10:20:00* Test Item Value Reference Range Interpretation Comments very low density lipoproteins (test code = 2091-7) 60 mg/dL 5-4 0 H [facility]cHDL cholesterol, [id number] 10:20:00* Test Item Value Reference Range Interpretation Comments HDL cholesterol, serum (test code = 2085-9) 41 mg/dL >39 [facility]ctriglyceride, serum, [id number] 10:20:00* Test Item Value Reference Range Interpretation Comments triglyceride, serum, fasting (test code = 2571-8) 298 mg/dL 0-14 9 H [facility]ccholesterol, [id number] 10:20:00* Test Item Value Reference Range Interpretation Comments cholesterol, serum (test code = 2093-3) 239 mg/dL 100-199 H [facility] Nhrmcalanine aminotransferase (SGPT), [id number] 10:20:00 * Test Item Value Reference Range Interpretation Comments alanine aminotransferase (SGPT), serum (test code = 1742-6) 25 1/L 0-32 [facility]hrmcaspartate aminotransferase (SGOT), [id number] 10:20:00* Test Item Value Reference Range Interpretation Comments aspartate aminotransferase (SGOT), serum (test code = 1920-8) 22 1/ L 0-40 [facility]rmcalkaline phosphatase, [id number] 10:20:00* Test Item Value Reference Range Interpretation Comments alkaline phosphatase, serum (test code = 1783-0) 108 1/L 39-11 7 [facility]ilirubin, serum, [id number] 10:20:00* Test Item Value Reference Range Interpretation Comments bilirubin, serum, total (test code = 1975-2) <0.2 mg/dL 0.0-1.2 [facility]bumin/globulin ratio, ukmdu1438-40-07 10:20:00* Test Item Value Reference Range Interpretation Comments albumin/globulin ratio, serum (test code = 1759-0) 1.5 1.2 -2.2 [facility] Health[facility]ulin, [id number] 10:20:00* Test Item Value Reference Range Interpretation Comments globulin, serum (test code = 2336-6) 3.1 1.5-4.5 [facility] Healthalbumin, [id number] 10:20:00* Test Item Value Reference Range Interpretation Comments albumin, serum (test code = 1751-7) 4.8 g/dL 3.9-5.0 [facility] Healthprotein, total, [id number] 10:20:00* Test Item Value Reference Range Interpretation Comments protein, total, serum (test code = 2885-2) 7.9 g/dL 6.0-8.5 [facility] Healthcalcium, [id number] 10:20:00* Test Item Value Reference Range Interpretation Comments calcium, serum (test code = 2000-8) 9.8 mg/dL 8.7-10.2 [facility]arbon dioxide, venous [id number] 10:20:00* Test Item Value Reference Range Interpretation Comments carbon dioxide, venous blood (test code = 2027-1) 21 mmol/L 20-2 9 [facility] Healthchloride, [id number] 10:20:00* Test Item Value Reference Range Interpretation Comments chloride, serum (test code = 2075-0) 100 mmol/L 96-106 [facility] Healthpotassium, cirvy1506-18-22 10:20:00* Test Item Value Reference Range Interpretation Comments potassium, serum (test code = 2823-3) 4.4 mmol/L 3.5-5.2 [facility] Healthsodium, [id number] 10:20:00* Test Item Value Reference Range Interpretation Comments sodium, serum (test code = 2951-2) 137 mmol/L 134-144 [facility]rmcurea nitrogen/creatinine ratio, [id number] 10:20:00 * Test Item Value Reference Range Interpretation Comments urea nitrogen/creatinine ratio, serum (test code = 3097-3) 17 9-23 [facility] HealtheGFR if Cnjhynhm7986-71-34 10:20:00* Test Item Value Reference Range Interpretation Comments eGFR if (test code = 55568-5) 157 mL/min/((173/100 ).m2) >59 [facility]rmcEstimated Glomerular Filtration Rate (calc)2019-08-04 10:20:00* Test Item Value Reference Range Interpretation Comments Estimated Glomerular Filtration Rate (calc) (test code = 14012-2) 136 mL/min/((173/100).m2) >59 [facility]ccreatinine, [id number] 10:20:00* Test Item Value Reference Range Interpretation Comments creatinine, serum (test code = 2160-0) 0.52 mg/dL 0.57-1.00 L [facility] Nhrmcurea nitrogen, icyji6503-40-95 10:20:00* Test Item Value Reference Range Interpretation Comments urea nitrogen, blood (test code = 3094-0) 9 mg/dL 6-20 [facility]cblood glucose, [id number] 10:20:00* Test Item Value Reference Range Interpretation Comments blood glucose, random (test code = 2339-0) 97 mg/dL 65-99 [facility]rmcimmature granulocytes, percentage of total cells, blood 2019-08-04 10:20:00* Test Item Value Reference Range Interpretation Comments immature granulocytes, percentage of total cells, bloo d (test code = 21947-1) 0 % [facility]cbasophil count, rivmhqzg7936-80-15 10:20:00* Test Item Value Reference Range Interpretation Comments basophil count, absolute (test code = 12079-9) 0.0 x10E3/uL 0.0-0.2 [facility]cEosinophil Absolute [id number] 10:20:00* Test Item Value Reference Range Interpretation Comments Eosinophil Absolute Count (test code = 51594-3) 0.1 X10E3/UL 0.0-0. 4 [facility]cmonocyte count, blood, mbpdcogsg7162-61-85 10:20:00* Test Item Value Reference Range Interpretation Comments monocyte count, blood, automated (test code = 742-7) 0.4 X10E3/UL 0 .1-0.9 [facility]clymphocyte count, blood, [id number] 10:20:00* Test Item Value Reference Range Interpretation Comments lymphocyte count, blood, automated (test code = 731-0) 2.5 X10E3/UL 0.7-3.1 [facility]cAbsolute Mgyicyhnlcn9008-58-44 10:20:00* Test Item Value Reference Range Interpretation Comments Absolute Neutrophils (test code = 33310-1) 4.5 X10E3/UL 1.4-7.0 [facility]cbasophils as percent of blood shbpdrgyyc3957-69-01 10:20:00* Test Item Value Reference Range Interpretation Comments basophils as percent of blood leukocytes (test code = 707-0) 0 % [facility]rmceosinophils as percent of blood jxhpxamcvl4307-31-97 10:20:00* Test Item Value Reference Range Interpretation Comments eosinophils as percent of blood leukocytes (test code = 713-8) 1 % [facility]cmonocytes as percent of blood bqafrymqzd1895-60-59 10:20:00* Test Item Value Reference Range Interpretation Comments monocytes as percent of blood leukocytes (test code = 5905-5) 5 % [facility]clymphocytes as percent of blood phsucvcqud2003-03-22 10:20:00* Test Item Value Reference Range Interpretation Comments lymphocytes as percent of blood leukocytes (test code = 736-9) 34 % [facility]cneutrophils as percent of blood jjithaiser0535-80-65 10:20:00* Test Item Value Reference Range Interpretation Comments neutrophils as percent of blood leukocytes (test code = 770-8) 60 % [facility] N[facility]rmcplatelet bmaze2450-56-54 10:20:00* Test Item Value Reference Range Interpretation Comments platelet count (test code = 777-3) 254 X10E3/UL 150-450 [facility]cred blood cell distribution afnib9185-47-24 10:20:00* Test Item Value Reference Range Interpretation Comments red blood cell distribution width (test code = 788-0) 14.0 % 11.7-15.4 [facility]cmean corpuscular hemoglobin concentration, [id number] 10:20:00* Test Item Value Reference Range Interpretation Comments mean corpuscular hemoglobin concentration, RBC (test code = 786-4) 31.1 G/DL 31.5-35.7 L [facility] hemoglobin, [id number] 10:20:00* Test Item Value Reference Range Interpretation Comments mean corpuscular hemoglobin, RBC (test code = 785-6) 28.4 pg 2 6.6-33.0 [facility] corpuscular volume, [id number] 10:20:00* Test Item Value Reference Range Interpretation Comments mean corpuscular volume, RBC (test code = 787-2) 91 fL 79-97 [facility]rmchematocrit, [id number] 10:20:00* Test Item Value Reference Range Interpretation Comments hematocrit, blood (test code = 4544-3) 41.2 % 34.0-46.6 [facility]rmchemoglobin, [id number] 10:20:00* Test Item Value Reference Range Interpretation Comments hemoglobin, blood (test code = 718-7) 12.8 g/dL 11.1-15.9 [facility]rmcerythrocyte (RBC) [id number] 10:20:00* Test Item Value Reference Range Interpretation Comments erythrocyte (RBC) count (test code = 789-8) 4.51 X10E6/UL 3.77-5.28 [facility]rmcleukocyte count, [id number] 10:20:00* Test Item Value Reference Range Interpretation Comments leukocyte count, blood (test code = 6690-2) 7.5 X10E3/UL 3.4-10.8 [facility]cbeta HCG, urine, xeourwnklzafhagw0268-71-44 09:20:10* Test Item Value Reference Range Interpretation Comments beta HCG, urine, semiquantitative (test code = 2106-3) negative [facility] N[facility]rmcUrine [id number] 17:20:00* Test Item Value Reference Range Interpretation Comments Urine WBC (test code = 5821-4) 0-5 0-5 [facility] [id number] 17:20:00* Test Item Value Reference Range Interpretation Comments Urine RBC (test code = 39523-6) 0-5 0-5 [facility] Cikfrfte8356-53-02 17:20:00* Test Item Value Reference Range Interpretation Comments Urine Bacteria (test code = 86132-2) MODERATE NONE H [facility] Epithelial [id number] 17:20:00 * Test Item Value Reference Range Interpretation Comments Urine Epithelial Cells (test code = 63683-6) MODERATE NONE [facility] [id number] 17:04:00* Test Item Value Reference Range Interpretation Comments Urine Color (test code = 5778-6) YELLOW YELLOW [facility] Gkdygjt2522-92-20 17:04:00* Test Item Value Reference Range Interpretation Comments Urine Clarity (test code = 38746-5) CLEAR CLEAR [facility] Specific [id number] 17:04:00 * Test Item Value Reference Range Interpretation Comments Urine Specific [place] (test code = 5811-5) <=1.005 1.010-1.02 5 [facility] [id number] 17:04:00* Test Item Value Reference Range Interpretation Comments Urine pH (test code = 44806-1) 7 5-7 [facility] Leukocyte [id number] 17:04:00* Test Item Value Reference Range Interpretation Comments Urine Leukocyte Esterase (test code = 13563-0) NEGATIVE NEGATIV E [facility] [id number] 17:04:00* Test Item Value Reference Range Interpretation Comments Urine Nitrite (test code = 03560-0) NEGATIVE NEGATIVE [facility] [id number] 17:04:00* Test Item Value Reference Range Interpretation Comments Urine Protein (test code = 84521-6) NEGATIVE NEGATIVE [facility] Glucose (UA)2019-05-21 17:04:00* Test Item Value Reference Range Interpretation Comments Urine Glucose (UA) (test code = 64714-0) NEGATIVE NEGATIVE [facility] [id number] 17:04:00* Test Item Value Reference Range Interpretation Comments Urine Ketones (test code = 70547-5) NEGATIVE NEGATIVE [facility] Onsnovwhkqod9551-19-81 17:04:00* Test Item Value Reference Range Interpretation Comments Urine Urobilinogen (test code = 11651-3) 0.2 0.2-1 [facility] [id number] 17:04:00* Test Item Value Reference Range Interpretation Comments Urine Bilirubin (test code = 1977-8) NEGATIVE NEGATIVE [facility] [id number] 17:04:00* Test Item Value Reference Range Interpretation Comments Urine Blood (test code = 53977-9) 1+ NEGATIVE [facility] [id number] 17:00:00* Test Item Value Reference Range Interpretation Comments Urine Test (test code = 2106-3) NEGATIVE NEGATIVE [facility] color [id number] 15:00:00* Test Item Value Reference Range Interpretation Comments Urine Color (test code = 5778-6) YELLOW YELLOW [facility] [id number] 15:00:00* Test Item Value Reference Range Interpretation Comments Urine Clarity (test code = 83810-1) CLEAR [facility]AR [facility] by Test strip 2019-05-21 15:00:00* Test Item Value Reference Range Interpretation Comments Urine Specific [place] (test code = 5811-5) <=1.005 1.010-1.02 5 [facility] pH measurement by automated test [id number] 15:00:00* Test Item Value Reference Range Interpretation Comments Urine pH (test code = 66277-2) 7 5-7 [facility] leukocyte esterase detection by automated test [id number] 15:00:00* Test Item Value Reference Range Interpretation Comments Urine Leukocyte Esterase (test code = 49316-8) NEGATIVE NEGATIV E [facility] nitrite detection by automated test [id number] 15:00:00* Test Item Value Reference Range Interpretation Comments Urine Nitrite (test code = 88711-6) NEGATIVE NEGATIVE [facility] protein detection by automated test [id number] 15:00:00* Test Item Value Reference Range Interpretation Comments Urine Protein (test code = 17101-7) NEGATIVE NEGATIVE [facility] glucose detection by automated test [id number] 15:00:00* Test Item Value Reference Range Interpretation Comments Urine Glucose (UA) (test code = 35216-0) NEGATIVE NEGATIVE [facility] ketones detection by automated test [id number] 15:00:00* Test Item Value Reference Range Interpretation Comments Urine Ketones (test code = 06642-3) NEGATIVE NEGATIVE [facility] urobilinogen measurement by test strip (mass/volume)2019-05-21 15:00:00* Test Item Value Reference Range Interpretation Comments Urine Urobilinogen (test code = 85243-6) 0.2 0.2-1 [facility] total bilirubin [id number] 15:00:00* Test Item Value Reference Range Interpretation Comments Urine Bilirubin (test code = 1977-8) NEGATIVE NEGATIVE [facility] erythrocytes [id number] 15:00:00* Test Item Value Reference Range Interpretation Comments Urine Blood (test code = 66838-9) 1+ NEGATIVE [facility] HospitalAutomated urine sediment leukocyte count by microscopy (number/high power field)2019-05-21 15:00:00* Test Item Value Reference Range Interpretation Comments Urine WBC (test code = 5821-4) 0-5 0-5 [facility] HospitalErythrocytes detection in urine sediment by light [id number] 15:00:00* Test Item Value Reference Range Interpretation Comments Urine RBC (test code = 87566-3) 0-5 0-5 [facility] HospitalBacteria detection in urine sediment by light [id number] 15:00:00* Test Item Value Reference Range Interpretation Comments Urine Bacteria (test code = 10800-7) MODERATE NONE [facility] HospitalEpithelial cells detection in urine sediment by light [id number] 15:00:00* Test Item Value Reference Range Interpretation Comments Urine Epithelial Cells (test code = 73553-0) MODERATE NONE [facility] human chorionic gonadotropin (hCG) wwyljboqt3424-71-50 15:00:00* Test Item Value Reference Range Interpretation Comments Urine Test (test code = 2106-3) NEGATIVE NEGATIVE [facility] METABOLIC [id number] 13:37:00 * Test Item Value Reference Range Interpretation Comments SODIUM (test code = NA) 137 mmol/L 136-145 N POTASSIUM (test code = K) 3.8 mmol/L 3.5-5.1 N CHLORIDE (test code = CL) 105.0 mmol/L 98-107 N CARBON DIOXIDE (test code = CO2) 23.0 mmol/L 21-32 N ANION GAP (test code = GAP) 12.8 10-20 N GLUCOSE (test code = GLU) 109 mg/dL 74-106 H BLOOD UREA NITROGEN (test code = BUN) 8 mg/dL 7-18 N GLOMERULAR FILTRATION RATE (test code = GFR) > 60 mL/min >=60 Estimated GFR by using Modified MDRD formula.Chronic kidney disease is defined as either kidney damageor GFR <60 mL/min/1.73 m2 for >3 months. CREATININE (test code = CREAT) 0.60 mg/dL 0.55-1.02 N Note change in reference range due to change in reagent. BUN/CREATININE RATIO (test code = BUN/CREA) 13.5 10-20 N CALCIUM (test code = CA) 9.5 mg/dL 8.5-10.1 N HEPATIC FUNCTION [id number] 13:37:00* Test Item Value Reference Range Interpretation Comments TOTAL PROTEIN (test code = PROT) 8.2 gram/dL 6.4-8.2 N ALBUMIN (test code = ALB) 3.7 g/dL 3.4-5.0 N GLOBULIN (test code = GLOB) 4.5 gram/dL 2.7-4.2 H ALBUMIN/GLOBULIN RATIO (test code = A/G) 0.8 0.75-1.50 N BILIRUBIN TOTAL (test code = BILT) 0.30 mg/dL 0.0-1.0 N BILIRUBIN DIRECT (test code = BILD) 0.08 mg/dL 0.0-0.20 N SGOT/AST (test code = AST) 16 IUnit/L 15-37 N SGPT/ALT (test code = ALT) 24 IUnit/L 12-78 N ALKALINE PHOSPHATASE TOTAL (test code = ALKP) 115 IUnit/L 45-117 N Note change in reference range due to change in reagent. HCG SERUM [id number] 13:37:00* Test Item Value Reference Range Interpretation Comments HCG SERUM QUAL (test code = HCGQL) NEGATIVE NEGATIVE This HCGQL test is NOT applicable for MALE patients.Check with nurse about probable order error.If Tumor Marker Test needed, nurse should order test "HCGTU"(Test #550.89558) [id number] 13:37:00* Test Item Value Reference Range Interpretation Comments TROPONIN-I (test code = TROPI) <0.015 ng/mL 0-0.045 N BASIC METABOLIC [id number] 13:23:00* Test Item Value Reference Range Interpretation Comments SODIUM (test code = NA) 137 mmol/L 136-145 N POTASSIUM (test code = K) 3.8 mmol/L 3.5-5.1 N CHLORIDE (test code = CL) 105.0 mmol/L 98-107 N CARBON DIOXIDE (test code = CO2) mmol/L 21-32 ANION GAP (test code = GAP) 10-20 GLUCOSE (test code = GLU) mg/dL 74-106 BLOOD UREA NITROGEN (test code = BUN) mg/dL 7-18 GLOMERULAR FILTRATION RATE (test code = GFR) mL/min >=60 CREATININE (test code = CREAT) mg/dL 0.55-1.02 BUN/CREATININE RATIO (test code = BUN/CREA) 10-20 CALCIUM (test code = CA) mg/dL 8.5-10.1 HEPATIC FUNCTION [id number] 13:23:00* Test Item Value Reference Range Interpretation Comments TOTAL PROTEIN (test code = PROT) gram/dL 6.4-8.2 ALBUMIN (test code = ALB) g/dL 3.4-5.0 GLOBULIN (test code = GLOB) gram/dL 2.7-4.2 ALBUMIN/GLOBULIN RATIO (test code = A/G) 0.75-1.50 BILIRUBIN TOTAL (test code = BILT) mg/dL 0.0-1.0 BILIRUBIN DIRECT (test code = BILD) mg/dL 0.0-0.20 SGOT/AST (test code = AST) IUnit/L 15-37 SGPT/ALT (test code = ALT) IUnit/L 12-78 ALKALINE PHOSPHATASE TOTAL (test code = ALKP) IUnit/L 45-117 HCG SERUM [id number] 13:23:00* Test Item Value Reference Range Interpretation Comments HCG SERUM QUAL (test code = HCGQL) NEGATIVE NEGATIVE This HCGQL test is NOT applicable for MALE patients.Check with nurse about probable order error.If Tumor Marker Test needed, nurse should order test "HCGTU"(Test #550.19630) [id number] 13:23:00* Test Item Value Reference Range Interpretation Comments TROPONIN-I (test code = TROPI) ng/mL 0-0.045 BASIC METABOLIC [id number] 13:14:00* Test Item Value Reference Range Interpretation Comments SODIUM (test code = NA) 137 mmol/L 136-145 N POTASSIUM (test code = K) 3.8 mmol/L 3.5-5.1 N CHLORIDE (test code = CL) 105.0 mmol/L 98-107 N CARBON DIOXIDE (test code = CO2) mmol/L 21-32 ANION GAP (test code = GAP) 10-20 GLUCOSE (test code = GLU) mg/dL 74-106 BLOOD UREA NITROGEN (test code = BUN) mg/dL 7-18 GLOMERULAR FILTRATION RATE (test code = GFR) mL/min >=60 CREATININE (test code = CREAT) mg/dL 0.55-1.02 BUN/CREATININE RATIO (test code = BUN/CREA) 10-20 CALCIUM (test code = CA) mg/dL 8.5-10.1 HEPATIC FUNCTION [id number] 13:14:00* Test Item Value Reference Range Interpretation Comments TOTAL PROTEIN (test code = PROT) gram/dL 6.4-8.2 ALBUMIN (test code = ALB) g/dL 3.4-5.0 GLOBULIN (test code = GLOB) gram/dL 2.7-4.2 ALBUMIN/GLOBULIN RATIO (test code = A/G) 0.75-1.50 BILIRUBIN TOTAL (test code = BILT) mg/dL 0.0-1.0 BILIRUBIN DIRECT (test code = BILD) mg/dL 0.0-0.20 SGOT/AST (test code = AST) IUnit/L 15-37 SGPT/ALT (test code = ALT) IUnit/L 12-78 ALKALINE PHOSPHATASE TOTAL (test code = ALKP) IUnit/L 45-117 HCG SERUM [id number] 13:14:00* Test Item Value Reference Range Interpretation Comments HCG SERUM QUAL (test code = HCGQL) NEGATIVE [id number] 13:14:00* Test Item Value Reference Range Interpretation Comments TROPONIN-I (test code = TROPI) ng/mL 0-0.045 CBC W/O [id number] 13:11:00* Test Item Value Reference Range Interpretation Comments WHITE BLOOD CELL (test code = WBC) 6.0 K/mm3 4.5-12.5 N RED BLOOD CELL (test code = RBC) 4.43 mill/mm3 3.7-5.2 N HEMOGLOBIN (test code = HGB) 12.5 gram/dL 11.5-15.5 N HEMATOCRIT (test code = HCT) 38.0 % 36.0-46.0 N MEAN CELL VOLUME (test code = MCV) 85.8 fL 80-98 N MEAN CELL HGB (test code = MCH) 28.2 picogram 27.0-33.0 N MEAN CELL HGB CONCETRATION (test code = MCHC) 32.9 gram/dL 33.0-36. 0 L RED CELL DISTRIBUTION WIDTH (test code = RDW) 13.2 % 11.6-16. 2 N PLATELET COUNT (test code = PLT) 195 K/mm3 150-450 N MEAN PLATELET VOLUME (test code = MPV) 11.3 fL 6.7-11.0 H BASIC METABOLIC [id number] 22:22:00* Test Item Value Reference Range Interpretation Comments SODIUM (test code = NA) 137 mmol/L 136-145 N POTASSIUM (test code = K) 3.8 mmol/L 3.5-5.1 N CHLORIDE (test code = CL) 103.0 mmol/L 98-107 N CARBON DIOXIDE (test code = CO2) 27.0 mmol/L 21-32 N ANION GAP (test code = GAP) 10.8 10-20 N GLUCOSE (test code = GLU) 100 mg/dL 74-106 N BLOOD UREA NITROGEN (test code = BUN) 8 mg/dL 7-18 N GLOMERULAR FILTRATION RATE (test code = GFR) > 60 mL/min >=60 Estimated GFR by using Modified MDRD formula.Chronic kidney disease is defined as either kidney damageor GFR <60 mL/min/1.73 m2 for >3 months. CREATININE (test code = CREAT) 0.60 mg/dL 0.55-1.02 N Note change in reference range due to change in reagent. BUN/CREATININE RATIO (test code = BUN/CREA) 14.0 10-20 N CALCIUM (test code = CA) 9.4 mg/dL 8.5-10.1 N HCG SERUM [id number] 22:22:00* Test Item Value Reference Range Interpretation Comments HCG SERUM QUAL (test code = HCGQL) NEGATIVE NEGATIVE This HCGQL test is NOT applicable for MALE patients.Check with nurse about probable order error.If Tumor Marker Test needed, nurse should order test "HCGTU"(Test #550.12745) BASIC METABOLIC [id number] 22:21:00* Test Item Value Reference Range Interpretation Comments SODIUM (test code = NA) 137 mmol/L 136-145 N POTASSIUM (test code = K) 3.8 mmol/L 3.5-5.1 N CHLORIDE (test code = CL) 103.0 mmol/L 98-107 N CARBON DIOXIDE (test code = CO2) 27.0 mmol/L 21-32 N ANION GAP (test code = GAP) 10.8 10-20 N GLUCOSE (test code = GLU) 100 mg/dL 74-106 N BLOOD UREA NITROGEN (test code = BUN) 8 mg/dL 7-18 N GLOMERULAR FILTRATION RATE (test code = GFR) > 60 mL/min >=60 Estimated GFR by using Modified MDRD formula.Chronic kidney disease is defined as either kidney damageor GFR <60 mL/min/1.73 m2 for >3 months. CREATININE (test code = CREAT) 0.60 mg/dL 0.55-1.02 N Note change in reference range due to change in reagent. BUN/CREATININE RATIO (test code = BUN/CREA) 14.0 10-20 N CALCIUM (test code = CA) 9.4 mg/dL 8.5-10.1 N HCG SERUM [id number] 22:21:00* Test Item Value Reference Range Interpretation Comments HCG SERUM QUAL (test code = HCGQL) NEGATIVE CBC W/AUTO [id number] 22:05:00* Test Item Value Reference Range Interpretation Comments WHITE BLOOD CELL (test code = WBC) 8.6 K/mm3 4.5-12.5 N RED BLOOD CELL (test code = RBC) 4.41 mill/mm3 3.7-5.2 N HEMOGLOBIN (test code = HGB) 12.3 gram/dL 11.5-15.5 N HEMATOCRIT (test code = HCT) 37.1 % 36.0-46.0 N MEAN CELL VOLUME (test code = MCV) 84.1 fL 80-98 N MEAN CELL HGB (test code = MCH) 27.9 picogram 27.0-33.0 N MEAN CELL HGB CONCETRATION (test code = MCHC) 33.2 gram/dL 33.0-36. 0 N RED CELL DISTRIBUTION WIDTH (test code = RDW) 13.2 % 11.6-16. 2 N RED CELL DISTRIBUTION WIDTH SD (test code = RDW-SD) 40.8 fL 37 .0-51.0 N PLATELET COUNT (test code = PLT) 239 K/mm3 150-450 N MEAN PLATELET VOLUME (test code = MPV) 11.4 fL 6.7-11.0 H NEUTROPHIL % (test code = NT%) 74.9 % 39.0-69.0 H IMMATURE GRANULOCYTE % (test code = IG%) 0.3 % 0.0-5.0 N LYMPHOCYTE % (test code = LY%) 21.4 % 25.0-55.0 L MONOCYTE % (test code = MO%) 3.1 % 0.0-10.0 N EOSINOPHIL % (test code = EO%) 0.2 % 0.0-5.0 N BASOPHIL % (test code = BA%) 0.1 % 0.0-1.0 N NUCLEATED RBC % (test code = NRBC%) 0.0 % 0-0 N NEUTROPHIL # (test code = NT#) 6.45 K/mm3 1.8-7.7 N IMMATURE GRANULOCYTE # (test code = IG#) 0.03 x10 3/uL 0-0.03 N LYMPHOCYTE # (test code = LY#) 1.85 K/mm3 1.0-5.0 N MONOCYTE # (test code = MO#) 0.27 K/mm3 0-0.8 N EOSINOPHIL # (test code = EO#) 0.02 K/mm3 0.0-0.5 N BASOPHIL # (test code = BA#) 0.01 K/mm3 0.0-0.2 N NUCLEATED RBC # (test code = NRBC#) 0.00 K/mm3 0.0-0.1 N MANUAL DIFF REQUIRED (test code = MDIFF) NO CBC W/AUTO [id number] 22:04:00* Test Item Value Reference Range Interpretation Comments WHITE BLOOD CELL (test code = WBC) K/mm3 4.5-12.5 RED BLOOD CELL (test code = RBC) mill/mm3 3.7-5.2 HEMOGLOBIN (test code = HGB) 12.3 gram/dL 11.5-15.5 N HEMATOCRIT (test code = HCT) 37.1 % 36.0-46.0 N MEAN CELL VOLUME (test code = MCV) fL 80-98 MEAN CELL HGB (test code = MCH) picogram 27.0-33.0 MEAN CELL HGB CONCETRATION (test code = MCHC) gram/dL 33.0-36. 0 RED CELL DISTRIBUTION WIDTH (test code = RDW) % 11.6-16. 2 RED CELL DISTRIBUTION WIDTH SD (test code = RDW-SD) fL 37 .0-51.0 PLATELET COUNT (test code = PLT) K/mm3 150-450 MEAN PLATELET VOLUME (test code = MPV) fL 6.7-11.0 NEUTROPHIL % (test code = NT%) % 39.0-69.0 IMMATURE GRANULOCYTE % (test code = IG%) % 0.0-5.0 LYMPHOCYTE % (test code = LY%) % 25.0-55.0 MONOCYTE % (test code = MO%) % 0.0-10.0 EOSINOPHIL % (test code = EO%) % 0.0-5.0 BASOPHIL % (test code = BA%) % 0.0-1.0 NEUTROPHIL # (test code = NT#) K/mm3 1.8-7.7 LYMPHOCYTE # (test code = LY#) K/mm3 1.0-5.0 MONOCYTE # (test code = MO#) K/mm3 0-0.8 EOSINOPHIL # (test code = EO#) K/mm3 0.0-0.5 BASOPHIL # (test code = BA#) K/mm3 0.0-0.2 CBC W/AUTO [id number] 08:04:00* Test Item Value Reference Range Interpretation Comments WHITE BLOOD CELL (test code = WBC) 10.6 K/mm3 4.5-12.5 N RED BLOOD CELL (test code = RBC) 3.14 mill/mm3 3.7-5.2 L HEMOGLOBIN (test code = HGB) 9.3 gram/dL 11.5-15.5 L HEMATOCRIT (test code = HCT) 28.6 % 36.0-46.0 L MEAN CELL VOLUME (test code = MCV) 91.1 fL 80-98 N MEAN CELL HGB (test code = MCH) 29.6 picogram 27.0-33.0 N MEAN CELL HGB CONCETRATION (test code = MCHC) 32.5 gram/dL 33.0-36. 0 L RED CELL DISTRIBUTION WIDTH (test code = RDW) 14.7 % 11.6-16. 2 N RED CELL DISTRIBUTION WIDTH SD (test code = RDW-SD) 48.7 fL 37 .0-51.0 N PLATELET COUNT (test code = PLT) 102 K/mm3 150-450 L MEAN PLATELET VOLUME (test code = MPV) 13.6 fL 6.7-11.0 H NEUTROPHIL % (test code = NT%) 73.9 % 39.0-69.0 H IMMATURE GRANULOCYTE % (test code = IG%) 0.6 % 0.0-5.0 N LYMPHOCYTE % (test code = LY%) 21.1 % 25.0-55.0 L MONOCYTE % (test code = MO%) 4.1 % 0.0-10.0 N EOSINOPHIL % (test code = EO%) 0.1 % 0.0-5.0 N BASOPHIL % (test code = BA%) 0.2 % 0.0-1.0 N NUCLEATED RBC % (test code = NRBC%) 0.0 % 0-0 N NEUTROPHIL # (test code = NT#) 7.80 K/mm3 1.8-7.7 H IMMATURE GRANULOCYTE # (test code = IG#) 0.06 x10 3/uL 0-0.03 H LYMPHOCYTE # (test code = LY#) 2.23 K/mm3 1.0-5.0 N MONOCYTE # (test code = MO#) 0.43 K/mm3 0-0.8 N EOSINOPHIL # (test code = EO#) 0.01 K/mm3 0.0-0.5 N BASOPHIL # (test code = BA#) 0.02 K/mm3 0.0-0.2 N NUCLEATED RBC # (test code = NRBC#) 0.00 K/mm3 0.0-0.1 N MANUAL DIFF REQUIRED (test code = MDIFF) NO COMMENTS TO [employer] WORKER: 1ST DAYHIV 1 2 COMBO AG/AB [id number] 05:09:00* Test Item Value Reference Range Interpretation Comments HIV 1 2 COMBO AG/AB SCREEN (test code = [id number]) AB/AG NO N REACTIVE NONREACTIVE NONREACTIVE HIV P24 ANTI GEN NONREACTIVE NONREACTIVE HIV 1&2 ANTIBODY NONREACTIVE THE HIV-1 P24 TEST HELPS DISTINGUISH ACUTE HIV-1INFECTIONFROM ESTABLISHED HIV-1 INFECTION WHEN THE SPECIMEN ISPOSITIVE FOR HIV-1 P24 ANTIGEN. HIV-1 P24 ANTIGEN IS HIGHEST IN THE FIRST FEW WEEKS AFTERINFECTION AG HEPAT B [id number] 05:01:00* Test Item Value Reference Range Interpretation Comments AG HEPAT B SURF (test code = HBSAG) Nonreactive Index Nonreactive AB [id number] 05:01:00* Test Item Value Reference Range Interpretation Comments AB TREPONEMA (test code = TREPAB) Nonreactive Index NonReactive URINALYSIS [id number] 04:43:00* Test Item Value Reference Range Interpretation Comments UA COLOR (test code = COLU) YELLOW YELLOW UA APPEARANCE (test code = APPU) Cloudy CLEAR A UA GLUCOSE DIPSTICK (test code = DGLUU) NEGATIVE mg/dL NEGATIVE UA BILIRUBIN DIPSTICK (test code = BILU) NEGATIVE mg/dL NEGATIVE UA KETONE DIPSTICK (test code = KETU) NEGATIVE mg/dL NEGATIVE UA SPECIFIC GRAVITY (test code = SGU) 1.007 1.001-1.035 UA BLOOD DIPSTICK (test code = BAY) 0.06 mg/dL (1+) mg/dL NEGATIVE A UA PH DIPSTICK (test code = MARGO) 7.0 5.0-8.0 UA PROTEIN DIPSTICK (test code = PROU) 30 (1+) mg/dL NEGATIVE A UA UROBILINIOGEN DIPSTICK (test code = URO) Normal mg/dL NEGATIVE UA NITRITE DIPSTICK (test code = DOMI) NEGATIVE NEGATIVE UA LEUKOCYTE ESTERASE W REFLEX (test code = LEUUR) 250 Jennifer/uL Jennifer/u L NEGATIVE A UA WBC (test code = WBCU) 20-30 per HPF 0-5 A UA RBC (test code = RBCU) 10-15 per HPF 0-5 A UA EPITHELIAL CELLS (test code = EPIU) Few (2-5/hpf) per HPF Few UA BACTERIA (test code = BACU) FEW per HPF NONE UA MUCUS (test code = MUCU) FEW per LPF NONE-FEW URINALYSIS [id number] 04:42:00* Test Item Value Reference Range Interpretation Comments UA COLOR (test code = COLU) YELLOW YELLOW UA APPEARANCE (test code = APPU) Cloudy CLEAR A UA GLUCOSE DIPSTICK (test code = DGLUU) NEGATIVE mg/dL NEGATIVE UA BILIRUBIN DIPSTICK (test code = BILU) NEGATIVE mg/dL NEGATIVE UA KETONE DIPSTICK (test code = KETU) NEGATIVE mg/dL NEGATIVE UA SPECIFIC GRAVITY (test code = SGU) 1.007 1.001-1.035 UA BLOOD DIPSTICK (test code = BAY) 0.06 mg/dL (1+) mg/dL NEGATIVE A UA PH DIPSTICK (test code = MARGO) 7.0 5.0-8.0 UA PROTEIN DIPSTICK (test code = PROU) 30 (1+) mg/dL NEGATIVE A UA UROBILINIOGEN DIPSTICK (test code = URO) Normal mg/dL NEGATIVE UA NITRITE DIPSTICK (test code = DOMI) NEGATIVE NEGATIVE UA LEUKOCYTE ESTERASE W REFLEX (test code = LEUUR) 250 Jennifer/uL Jennifer/u L NEGATIVE A UA WBC (test code = WBCU) per HPF 0-5 UA RBC (test code = RBCU) per HPF 0-5 UA EPITHELIAL CELLS (test code = EPIU) per HPF Few UA BACTERIA (test code = BACU) per HPF NONE URINALYSIS [id number] 04:42:00* Test Item Value Reference Range Interpretation Comments UA COLOR (test code = COLU) YELLOW YELLOW UA APPEARANCE (test code = APPU) Cloudy CLEAR A UA GLUCOSE DIPSTICK (test code = DGLUU) NEGATIVE mg/dL NEGATIVE UA BILIRUBIN DIPSTICK (test code = BILU) NEGATIVE mg/dL NEGATIVE UA KETONE DIPSTICK (test code = KETU) NEGATIVE mg/dL NEGATIVE UA SPECIFIC GRAVITY (test code = SGU) 1.007 1.001-1.035 UA BLOOD DIPSTICK (test code = BAY) 0.06 mg/dL (1+) mg/dL NEGATIVE A UA PH DIPSTICK (test code = MARGO) 7.0 5.0-8.0 UA PROTEIN DIPSTICK (test code = PROU) 30 (1+) mg/dL NEGATIVE A UA UROBILINIOGEN DIPSTICK (test code = URO) Normal mg/dL NEGATIVE UA NITRITE DIPSTICK (test code = DOMI) NEGATIVE NEGATIVE UA LEUKOCYTE ESTERASE W REFLEX (test code = LEUUR) 250 Jennifer/uL Jennifer/u L NEGATIVE A UA WBC (test code = WBCU) per HPF 0-5 UA RBC (test code = RBCU) per HPF 0-5 UA EPITHELIAL CELLS (test code = EPIU) per HPF Few UA BACTERIA (test code = BACU) per HPF NONE CBC W/AUTO [id number] 04:27:00* Test Item Value Reference Range Interpretation Comments WHITE BLOOD CELL (test code = WBC) 7.5 K/mm3 4.5-12.5 N RED BLOOD CELL (test code = RBC) 3.72 mill/mm3 3.7-5.2 N HEMOGLOBIN (test code = HGB) 11.1 gram/dL 11.5-15.5 L HEMATOCRIT (test code = HCT) 33.5 % 36.0-46.0 L MEAN CELL VOLUME (test code = MCV) 90.1 fL 80-98 N MEAN CELL HGB (test code = MCH) 29.8 picogram 27.0-33.0 N MEAN CELL HGB CONCETRATION (test code = MCHC) 33.1 gram/dL 33.0-36. 0 N RED CELL DISTRIBUTION WIDTH (test code = RDW) 14.6 % 11.6-16. 2 N RED CELL DISTRIBUTION WIDTH SD (test code = RDW-SD) 47.6 fL 37 .0-51.0 N PLATELET COUNT (test code = PLT) 122 K/mm3 150-450 L MEAN PLATELET VOLUME (test code = MPV) 13.4 fL 6.7-11.0 H NEUTROPHIL % (test code = NT%) 61.8 % 39.0-69.0 N IMMATURE GRANULOCYTE % (test code = IG%) 0.5 % 0.0-5.0 N LYMPHOCYTE % (test code = LY%) 33.0 % 25.0-55.0 N MONOCYTE % (test code = MO%) 4.5 % 0.0-10.0 N EOSINOPHIL % (test code = EO%) 0.1 % 0.0-5.0 N BASOPHIL % (test code = BA%) 0.1 % 0.0-1.0 N NUCLEATED RBC % (test code = NRBC%) 0.0 % 0-0 N NEUTROPHIL # (test code = NT#) 4.63 K/mm3 1.8-7.7 N IMMATURE GRANULOCYTE # (test code = IG#) 0.04 x10 3/uL 0-0.03 H LYMPHOCYTE # (test code = LY#) 2.48 K/mm3 1.0-5.0 N MONOCYTE # (test code = MO#) 0.34 K/mm3 0-0.8 N EOSINOPHIL # (test code = EO#) 0.01 K/mm3 0.0-0.5 N BASOPHIL # (test code = BA#) 0.01 K/mm3 0.0-0.2 N NUCLEATED RBC # (test code = NRBC#) 0.00 K/mm3 0.0-0.1 N ROM [id number] 18:10:00* Test Item Value Reference Range Interpretation Comments ROM PLUS (test code = AMNI) NEGATIVE NEGATIVE COMPREHENSIVE METABOLIC [id number] 07:59:00* Test Item Value Reference Range Interpretation Comments SODIUM (test code = NA) 142 mmol/L 136-145 N POTASSIUM (test code = K) 3.9 mmol/L 3.5-5.1 N CHLORIDE (test code = CL) 110.0 mmol/L 98-107 H CARBON DIOXIDE (test code = CO2) 25.0 mmol/L 21-32 N ANION GAP (test code = GAP) 10.9 10-20 N GLUCOSE (test code = GLU) 112 mg/dL 74-106 H BLOOD UREA NITROGEN (test code = BUN) 4 mg/dL 7-18 L GLOMERULAR FILTRATION RATE (test code = GFR) > 60 mL/min >=60 Estimated GFR by using Modified MDRD formula.Chronic kidney disease is defined as either kidney damageor GFR <60 mL/min/1.73 m2 for >3 months. CREATININE (test code = CREAT) 0.30 mg/dL 0.55-1.02 L Note change in reference range due to change in reagent. BUN/CREATININE RATIO (test code = BUN/CREA) 12.4 10-20 N TOTAL PROTEIN (test code = PROT) 5.6 gram/dL 6.4-8.2 L ALBUMIN (test code = ALB) 2.4 g/dL 3.4-5.0 L GLOBULIN (test code = GLOB) 3.2 gram/dL 2.7-4.2 N ALBUMIN/GLOBULIN RATIO (test code = A/G) 0.8 0.75-1.50 N CALCIUM (test code = CA) 8.3 mg/dL 8.5-10.1 L BILIRUBIN TOTAL (test code = BILT) 0.20 mg/dL 0.0-1.0 N SGOT/AST (test code = AST) 9 IUnit/L 15-37 L SGPT/ALT (test code = ALT) 11 IUnit/L 12-78 L ALKALINE PHOSPHATASE TOTAL (test code = ALKP) 94 IUnit/L 45-117 N Note change in reference range due to change in reagent. COMPREHENSIVE METABOLIC [id number] 07:57:00* Test Item Value Reference Range Interpretation Comments SODIUM (test code = NA) 142 mmol/L 136-145 N POTASSIUM (test code = K) 3.9 mmol/L 3.5-5.1 N CHLORIDE (test code = CL) 110.0 mmol/L 98-107 H CARBON DIOXIDE (test code = CO2) mmol/L 21-32 ANION GAP (test code = GAP) 10-20 GLUCOSE (test code = GLU) mg/dL 74-106 BLOOD UREA NITROGEN (test code = BUN) mg/dL 7-18 GLOMERULAR FILTRATION RATE (test code = GFR) mL/min >=60 CREATININE (test code = CREAT) mg/dL 0.55-1.02 BUN/CREATININE RATIO (test code = BUN/CREA) 10-20 TOTAL PROTEIN (test code = PROT) gram/dL 6.4-8.2 ALBUMIN (test code = ALB) g/dL 3.4-5.0 GLOBULIN (test code = GLOB) gram/dL 2.7-4.2 ALBUMIN/GLOBULIN RATIO (test code = A/G) 0.75-1.50 CALCIUM (test code = CA) mg/dL 8.5-10.1 BILIRUBIN TOTAL (test code = BILT) mg/dL 0.0-1.0 SGOT/AST (test code = AST) IUnit/L 15-37 SGPT/ALT (test code = ALT) IUnit/L 12-78 ALKALINE PHOSPHATASE TOTAL (test code = ALKP) IUnit/L 45-117 URINALYSIS [id number] 02:18:00* Test Item Value Reference Range Interpretation Comments UA COLOR (test code = COLU) YELLOW YELLOW UA APPEARANCE (test code = APPU) Cloudy CLEAR A UA GLUCOSE DIPSTICK (test code = DGLUU) NEGATIVE mg/dL NEGATIVE UA BILIRUBIN DIPSTICK (test code = BILU) NEGATIVE mg/dL NEGATIVE UA KETONE DIPSTICK (test code = KETU) Negative mg/dL NEGATIVE UA SPECIFIC GRAVITY (test code = SGU) 1.006 1.001-1.035 UA BLOOD DIPSTICK (test code = BAY) 3+ (Large) NEGATIVE A UA PH DIPSTICK (test code = MARGO) 8.0 5.0-8.0 UA PROTEIN DIPSTICK (test code = PROU) 30 (1+) mg/dL NEGATIVE A UA UROBILINIOGEN DIPSTICK (test code = URO) NEGATIVE mg/dL NEGATIVE UA NITRITE DIPSTICK (test code = DOMI) NEGATIVE NEGATIVE UA LEUKOCYTE ESTERASE W REFLEX (test code = LEUUR) 3+ NEG ATIVE A UA WBC (test code = WBCU) >50 per HPF 0-5 IN SOME URINARY TRACT INFECTIONS THERE MAY NOT BE ENOUGHWBCs IN THE URINE TO TRIGGER AN AUTOMATIC (REFLEX) URINECULTURE. A SEPERATE ORDER FOR URINE CULTURE IS RECOMMENDEDIF THERE IS STRONG SUPPORT FOR A URINARY TRACT INFECTIONCLINICALLY. UA RBC (test code = RBCU) >20 per HPF 0-5 UA WBC CLUMPS (test code = WBCUCL) >10 /HPF NONE A UA EPITHELIAL CELLS (test code = EPIU) Few (2-5/hpf) per HPF Few UA BACTERIA (test code = BACU) FEW per HPF NONE UA MUCUS (test code = MUCU) FEW #/LPF FEW URINALYSIS [id number] 02:13:00* Test Item Value Reference Range Interpretation Comments UA COLOR (test code = COLU) YELLOW YELLOW UA APPEARANCE (test code = APPU) Cloudy CLEAR A UA GLUCOSE DIPSTICK (test code = DGLUU) NEGATIVE mg/dL NEGATIVE UA BILIRUBIN DIPSTICK (test code = BILU) NEGATIVE mg/dL NEGATIVE UA KETONE DIPSTICK (test code = KETU) Negative mg/dL NEGATIVE UA SPECIFIC GRAVITY (test code = SGU) 1.006 1.001-1.035 UA BLOOD DIPSTICK (test code = BAY) 3+ (Large) NEGATIVE A UA PH DIPSTICK (test code = MARGO) 8.0 5.0-8.0 UA PROTEIN DIPSTICK (test code = PROU) 30 (1+) mg/dL NEGATIVE A UA UROBILINIOGEN DIPSTICK (test code = URO) NEGATIVE mg/dL NEGATIVE UA NITRITE DIPSTICK (test code = DOMI) NEGATIVE NEGATIVE UA LEUKOCYTE ESTERASE W REFLEX (test code = LEUUR) 3+ NEG ATIVE A UA WBC (test code = WBCU) per HPF 0-5 URINALYSIS [id number] 02:13:00* Test Item Value Reference Range Interpretation Comments UA COLOR (test code = COLU) YELLOW YELLOW UA APPEARANCE (test code = APPU) Cloudy CLEAR A UA GLUCOSE DIPSTICK (test code = DGLUU) NEGATIVE mg/dL NEGATIVE UA BILIRUBIN DIPSTICK (test code = BILU) NEGATIVE mg/dL NEGATIVE UA KETONE DIPSTICK (test code = KETU) Negative mg/dL NEGATIVE UA SPECIFIC GRAVITY (test code = SGU) 1.006 1.001-1.035 UA BLOOD DIPSTICK (test code = BAY) 3+ (Large) NEGATIVE A UA PH DIPSTICK (test code = MARGO) 8.0 5.0-8.0 UA PROTEIN DIPSTICK (test code = PROU) 30 (1+) mg/dL NEGATIVE A UA UROBILINIOGEN DIPSTICK (test code = URO) NEGATIVE mg/dL NEGATIVE UA NITRITE DIPSTICK (test code = DOMI) NEGATIVE NEGATIVE UA LEUKOCYTE ESTERASE W REFLEX (test code = LEUUR) 3+ NEG ATIVE A UA WBC (test code = WBCU) >50 per HPF 0-5 IN SOME URINARY TRACT INFECTIONS THERE MAY NOT BE ENOUGHWBCs IN THE URINE TO TRIGGER AN AUTOMATIC (REFLEX) URINECULTURE. A SEPERATE ORDER FOR URINE CULTURE IS RECOMMENDEDIF THERE IS STRONG SUPPORT FOR A URINARY TRACT INFECTIONCLINICALLY. UA RBC (test code = RBCU) >20 per HPF 0-5 UA WBC CLUMPS (test code = WBCUCL) >10 /HPF NONE A UA EPITHELIAL CELLS (test code = EPIU) Few (2-5/hpf) per HPF Few UA BACTERIA (test code = BACU) FEW per HPF NONE URINALYSIS [id number] 02:13:00* Test Item Value Reference Range Interpretation Comments UA COLOR (test code = COLU) YELLOW YELLOW UA APPEARANCE (test code = APPU) Cloudy CLEAR A UA GLUCOSE DIPSTICK (test code = DGLUU) NEGATIVE mg/dL NEGATIVE UA BILIRUBIN DIPSTICK (test code = BILU) NEGATIVE mg/dL NEGATIVE UA KETONE DIPSTICK (test code = KETU) Negative mg/dL NEGATIVE UA SPECIFIC GRAVITY (test code = SGU) 1.006 1.001-1.035 UA BLOOD DIPSTICK (test code = BAY) 3+ (Large) NEGATIVE A UA PH DIPSTICK (test code = MARGO) 8.0 5.0-8.0 UA PROTEIN DIPSTICK (test code = PROU) 30 (1+) mg/dL NEGATIVE A UA UROBILINIOGEN DIPSTICK (test code = URO) NEGATIVE mg/dL NEGATIVE UA NITRITE DIPSTICK (test code = DOMI) NEGATIVE NEGATIVE UA LEUKOCYTE ESTERASE W REFLEX (test code = LEUUR) 3+ NEG ATIVE A UA WBC (test code = WBCU) per HPF 0-5 CBC W/AUTO [id number] 02:11:00* Test Item Value Reference Range Interpretation Comments WHITE BLOOD CELL (test code = WBC) 11.0 K/mm3 4.5-12.5 N RED BLOOD CELL (test code = RBC) 3.66 mill/mm3 3.7-5.2 L HEMOGLOBIN (test code = HGB) 10.7 gram/dL 11.5-15.5 L HEMATOCRIT (test code = HCT) 32.4 % 36.0-46.0 L MEAN CELL VOLUME (test code = MCV) 88.5 fL 80-98 N MEAN CELL HGB (test code = MCH) 29.2 picogram 27.0-33.0 N MEAN CELL HGB CONCETRATION (test code = MCHC) 33.0 gram/dL 33.0-36. 0 N RED CELL DISTRIBUTION WIDTH (test code = RDW) 14.6 % 11.6-16. 2 N RED CELL DISTRIBUTION WIDTH SD (test code = RDW-SD) 45.2 fL 37 .0-51.0 N PLATELET COUNT (test code = PLT) 157 K/mm3 150-450 N MEAN PLATELET VOLUME (test code = MPV) 12.1 fL 6.7-11.0 H NEUTROPHIL % (test code = NT%) 77.6 % 39.0-69.0 H IMMATURE GRANULOCYTE % (test code = IG%) 1.5 % 0.0-5.0 N LYMPHOCYTE % (test code = LY%) 15.1 % 25.0-55.0 L MONOCYTE % (test code = MO%) 5.4 % 0.0-10.0 N EOSINOPHIL % (test code = EO%) 0.3 % 0.0-5.0 N BASOPHIL % (test code = BA%) 0.1 % 0.0-1.0 N NUCLEATED RBC % (test code = NRBC%) 0.0 % 0-0 N NEUTROPHIL # (test code = NT#) 8.54 K/mm3 1.8-7.7 H IMMATURE GRANULOCYTE # (test code = IG#) 0.17 x10 3/uL 0-0.03 H LYMPHOCYTE # (test code = LY#) 1.66 K/mm3 1.0-5.0 N MONOCYTE # (test code = MO#) 0.59 K/mm3 0-0.8 N EOSINOPHIL # (test code = EO#) 0.03 K/mm3 0.0-0.5 N BASOPHIL # (test code = BA#) 0.01 K/mm3 0.0-0.2 N NUCLEATED RBC # (test code = NRBC#) 0.00 K/mm3 0.0-0.1 N MANUAL DIFF REQUIRED (test code = MDIFF) NO
--- OUTSIDE RECORDS SUMMARY | 2020-02-15 14:45 | XMS REPORT ---
Author Author Shima Douglas Organization Unknown Address Unknown Phone Unavailable Care Team Providers Care Tire Layer Name Role Phone Karon Polk Unavailable Responsible Provider, Not Yet Assigned Unavailable U navailable PROBLEMS Condition Status Date Provider Notes Vision changes active Karon Jam Hyperlipidemia active Karon Jam Upper respiratory infection, acute completed - Karon Jam CONTRACEPTIVE MANAGEMENT active Karon Jam Screening for std active Karon Jam Screening for cervical cancer active Karon Jab een WELL EXAM, WOMAN active Karon Jam Adjustment disorder with mixed anxiety and depressed mood active Karon Jam Obesity active Karon Jam ENCOUNTERS Date Type Provider Location Encounter Diagn osis - Ambulatory Encounter Marysol Castillo UNK - Ambulatory Encounter Karon Jabee n Karon Jam Marysol Emmanuelquez Upper respiratory infection, acuteHyperlipidemiaVision changes - Ambulatory Encounter Karon Jabee n Karon Jam [facility] UNK - Ambulatory Encounter Karon Jabee n Karon Jam [facility] UNK - Ambulatory Encounter Karon Jabee n Karon Jam [facility] UNK - Ambulatory Encounter Karon Jabee n Karon Jam [facility] UNK - Ambulatory Encounter Karon Jabee n Karon Jam [facility] UNK - Ambulatory Encounter Karon Jam Samee ra Jam UNK - Ambulatory Encounter Karonsilvino Sosae elizabeth Rubioana Castillo Upper respiratory infection, acute - Ambulatory Encounter Marysol Castillo UNK - Ambulatory Encounter Stephaniemalathi Santana UNK - Ambulatory Encounter Marysol Castillo UNK - Ambulatory Encounter Karon Nailsbeen UNK - Ambulatory Encounter Karonsilvino Polk [facility] UNK - Ambulatory Encounter Karon Sosaen [facility] Marysol Castillo UNK - Ambulatory Encounter Karon Polk [facility] UNK - Ambulatory Encounter Karon Polk UNK - Ambulatory Encounter Marysol Castillo UNK - Ambulatory Encounter Karon Castillo ObesityAdjustment disorder w ith mixed anxiety and depressed moodWELL EXAM, WOMANScreening for cervical cancerScreening for stdCONTRACEPTIVE MANAGEMENT - Ambulatory Encounter Stephaniemalathi Santana UNK - Ambulatory Encounter Francia Donnelly Qamar UNK VITAL SIGNS Date Observation Value Provider oxygen saturation, oximetry 99 % Joanne Castillo " method used to obtain blood pressure automatic Marysol Castillo " Blood Pressure Position 01 sitting Roque Castillo " blood pressure, site #1 left arm Marysol Castillo " blood pressure, diastolic 72 mm[Hg] Jorge a Jonathan " blood pressure, systolic 107 mm[Hg] Marysol Castillo " respiratory rate E&M 14 /min Marysol Vas dima " pulse rate 97 /min Marysol Castillo " temperature site oral Marysol Castillo " temperature E&M 97.9 [degF] Marysol Castillo " weight E&M 161.60 lbs. Marysol Castillo " weight in kilograms E&M 73.45 kg Marysol Castillo " height E&M 59 [in_i] Marysol Castillo " height in centimeters E&M 149.86 cm Jorge a Castillo oxygen saturation, oximetry 98 % Joanne rodrigo Castillo " blood pressure, diastolic 79 mm[Hg] Jorge a Castillo " blood pressure, systolic 116 mm[Hg] Marysol Castillo " respiratory rate E&M 18 /min Marysol Vas dima " pulse rate 104 /min Marysol Castillo " temperature E&M 97.9 [degF] Marysol Castillo " weight E&M 155.40 lbs. Marysol Castillo " weight in kilograms E&M 70.64 kg Marysol Castillo " method used to obtain blood pressure automatic Marysol Castillo " Blood Pressure Position 01 sitting Roque na Castillo " blood pressure, site #1 left arm Marysol Castillo " temperature site oral Marysol Castillo " height E&M 59 [in_i] Marysol Castillo " height in centimeters E&M 149.86 cm Jorge a Castillo oxygen saturation, oximetry 98 % Joanne rodrigo Castillo " method used to obtain blood pressure automatic Marysol Castillo " Blood Pressure Position 01 sitting Roque na Castillo " blood pressure, site #1 left arm Marysol Castillo " blood pressure, diastolic 80 mm[Hg] Jorge a Castillo " blood pressure, systolic 113 mm[Hg] Marysol Castillo " respiratory rate E&M 18 /min Marysol Vas dima " pulse rate 95 /min Marysol Castillo " temperature site oral Marysol Castillo " temperature E&M 97.6 [degF] Marysol Castillo " weight E&M 159.60 lbs. Marysol Castillo " weight in kilograms E&M 72.55 kg Marysol Castillo " height E&M 59 [in_i] Marysol Castillo " height in centimeters E&M 149.86 cm Jorge a Castillo Allergies No Known Allergy Information REASON FOR REFERRAL No Information Available RESULTS Date Observation Value Provider Reference Range Interpretati on Location beta HCG, urine, semiquantitative negative Marysol Castillo Human Papillomavirus test result HPVNotTested [facility] Neisseria gonorrhoeae DNA probe Negative [facility] Negati ve " chlamydia DNA probe Negative [facility] Negative thyroid stimulating hormone, serum 1.210 u[iU]/mL [facility] 0.450-4.500 " hemoglobin A1C, blood, as % of total hemoglobin 5.6 % [facility] 4.8-5.6 " LDL cholesterol, serum 138 mg/dL [facility] 0-99 High " very low density lipoproteins 60 mg/dL [facility] 5-40 High " HDL cholesterol, serum 41 mg/dL [facility] >39 " triglyceride, serum, fasting 298 mg/dL [facility] 0-149 High " cholesterol, serum 239 mg/dL [facility] 100-199 High " alanine aminotransferase (SGPT), serum 25 1/L [facility] 0-32 " aspartate aminotransferase (SGOT), serum 22 1/L [facility] 0-40 " alkaline phosphatase, serum 108 1/L [facility] 39-117 " bilirubin, serum, total <0.2 mg/dL [facility] 0.0-1.2 " albumin/globulin ratio, serum 1.5 [facility] 1.2-2.2 " globulin, serum 3.1 [facility] 1.5-4.5 " albumin, serum 4.8 g/dL [facility] 3.9-5.0 " protein, total, serum 7.9 g/dL [facility] 6.0-8.5 " calcium, serum 9.8 mg/dL [facility] 8.7-10.2 " carbon dioxide, venous blood 21 mmol/L [facility] 20-29 " chloride, serum 100 mmol/L [facility] 96-106 " potassium, serum 4.4 mmol/L [facility] 3.5-5.2 " sodium, serum 137 mmol/L [facility] 134-144 " urea nitrogen/creatinine ratio, serum 17 [facility] 9 -23 " eGFR if 157 mL/min/((173/100).m2) [facility] >59 " Estimated Glomerular Filtration Rate (calc) 136 mL/min/((173/100).m2) [facility] >59 " creatinine, serum 0.52 mg/dL [facility] 0.57-1.00 Low " urea nitrogen, blood 9 mg/dL [facility] 6-20 " blood glucose, random 97 mg/dL [facility] 65-99 " immature granulocytes, percentage of total cells, bloo d 0 % [facility] Not Estab. " basophil count, absolute 0.0 x10E3/uL [facility] 0.0-0.2 " Eosinophil Absolute Count 0.1 X10E3/UL [facility] 0.0-0.4 " monocyte count, blood, automated 0.4 X10E3/UL [facility] 0.1 -0.9 " lymphocyte count, blood, automated 2.5 X10E3/UL [facility] 0 .7-3.1 " Absolute Neutrophils 4.5 X10E3/UL [facility] 1.4-7.0 " basophils as percent of blood leukocytes 0 % [facility] Not Estab. " eosinophils as percent of blood leukocytes 1 % [facility] Not Estab. " monocytes as percent of blood leukocytes 5 % [facility] Not Estab. " lymphocytes as percent of blood leukocytes 34 % [facility] Not Estab. " neutrophils as percent of blood leukocytes 60 % [facility] Not Estab. " platelet count 254 X10E3/UL [facility] 150-450 " red blood cell distribution width 14.0 % [facility] 11.7- 15.4 " mean corpuscular hemoglobin concentration, RBC 31.1 G/DL [facility] 31.5-35.7 Low " mean corpuscular hemoglobin, RBC 28.4 pg [facility] 26.6-3 3.0 " mean corpuscular volume, RBC 91 fL [facility] 79-97 " hematocrit, blood 41.2 % [facility] 34.0-46.6 " hemoglobin, blood 12.8 g/dL [facility] 11.1-15.9 " erythrocyte (RBC) count 4.51 X10E6/UL [facility] 3.77-5.28 " leukocyte count, blood 7.5 X10E3/UL [facility] 3.4-10.8 beta HCG, urine, semiquantitative negative Marysol Castillo HISTORY OF IMMUNIZATIONS No Information Available HISTORY OF MEDICATION USE Medication Instructions Dates Provider Comments SPRINTEC 28 0.25-35 MG-MCG ORAL TABLET 1 by mouth every day 2019 Karonsilvino Polk BROMFED DM 30-2-10 MG/5ML ORAL SYRUP 10 mL every four hours as needed for cough/congestion - Karonsilvino Polk LEXAPRO 10 MG ORAL TABLET 1 By Mouth Every Day Karon Polk SOCIAL HISTORY Date Observation Value Provider drug use, illicit Never Marysol Vasque z " alcohol use Never Marysol Castillo " sexual orientation Heterosexual Marysol Vasqu ez " is there any chance that you could be ? No Marysol Castillo " assessment of health literacy ([facility], 3C10) Adequate Marysol Castillo " passive cigarette smoke exposure No Marysol Castillo " if the patient is using/has used a vaping item, Current, Former, Never Used, Not asked No Marysol Castillo " smoking status never smoker Marysol Castillo " Exercise Program Referral T Jorge Castillo " Weight Management Counseling Provided T Marysol Castillo " Nutrition intervention T Marysol V asquez drug use, illicit Never Marysol Vasque z " alcohol use Never Marysol Castillo " sexual orientation Heterosexual Marysol Vasqu ez " is there any chance that you could be ? No Marysol Castillo " assessment of health literacy ([facility] Adequate Marysol Castillo " passive cigarette smoke exposure No Marysol Castillo " smoking status never smoker Marysol Castillo social history - sexual practice sexualy active Karon Polk " family support relationship Karon Polk " social history reviewed E&M reviewed today Same silvino Polk " drug use, illicit Never Marysol Vasque z " alcohol use Never Marysol Castillo " sexual orientation Heterosexual Marysol Vasqu ez " is there any chance that you could be ? No Marysol Castillo " assessment of health literacy ([facility], [facility] [place], 3C10) Adequate Marysol Castillo " passive cigarette smoke exposure No Marysol Castillo " smoking status never smoker Marysol Castillo " Exercise Program Referral T Jorge Castillo " Weight Management Counseling Provided T Marysolrodrigo Castillo " Nutrition intervention T Marysol V asquez " patient considered to be homeless No Marysol Castillo FUNCTIONAL STATUS No Information Available MENTAL STATUS Date Observation Value Provider Generalized Anxiety Disorder Questionnaire - Que stion 2 0 Marysol Castillo " Generalized Anxiety Disorder Questionnaire - Que stion 1 0 Marysol Castillo Generalized Anxiety Disorder Questionnaire - Que stion 2 0 Marysol Castillo " Generalized Anxiety Disorder Questionnaire - Que stion 1 0 Marysol Castillo Generalized Anxiety Disorder Questionnaire - Que stion 7 3 Marysol Castillo " Generalized Anxiety Disorder Questionnaire - Que stion 6 3 Marysol Castillo " Generalized Anxiety Disorder Questionnaire - Que stion 5 3 Marysol Castillo " Generalized Anxiety Disorder Questionnaire - Que stion 4 3 Marysol Castillo " Generalized Anxiety Disorder Questionnaire - Que stion 3 3 Marysol Castillo " Generalized Anxiety Disorder Questionnaire - Que stion 2 3 Marysol Castillo " Generalized Anxiety Disorder Questionnaire - Que stion 1 3 Marysol Castillo assessment of judgment and insight E&M intact Karonsilvino Polk " mental status examination: orientation E &M oriented to time, place, and person Karonsilvino Polk " assessment of mood and affect E&M no depression, anxiety, or agitation Karon Jam " Generalized Anxiety Disorder Questionnaire - Que stion 2 1 Marysol Castillo " Generalized Anxiety Disorder Questionnaire - Que stion 1 1 Marysol Castillo MEDICAL EQUIPMENT No Information Available FAMILY HISTORY No Information Available INSURANCE PROVIDERS Payer name Policy type / Coverage type Covered part y ID Sliding Fee - Cat 1 [employer] insurance company [id number] Title X Other [id number] ADVANCE DIRECTIVES No Information Available TREATMENT PLAN Date Name Lipid Panel TSH Rfx on Abnormal to Free T4 Lipid Panel Hemoglobin A1c Comp. Metabolic Panel (14) CBC With Differential/Platel et Chlamydia/GC Amplification ( Cervical) Pap IG, rfx HPV ASCU (21-29) Ofc Vst, Est Level IV Vision Ofc Vst, Est Level III IM or SQ Injection New Patient Well Exam (18 - 39 Yrs) - [address] HISTORY OF PROCEDURES Procedure Date Procedure Name Provider Procedure Notes Status IM or SQ Injection Karon brower GOALS No Information Available HEALTH CONCERNS No Information Available
== END 2020-02-15 13:30 | disposition home or self-care (01) ==
LOC: ER 13:30
DX: B34.9 Viral infection, unspecified (principal); R51 Headache; R11.2 Nausea with vomiting, unspecified; F41.9 Anxiety disorder, unspecified
CPT/HCPCS: 93005; 99282